=== PATIENT | male | born 1940 | race Two or more races ===

== ENCOUNTER → 2022-05-21 | Outpatient (CLI) | payer MEDICARE ==
[2022-05-21 12:30] LABS: Basophils # (auto) 0.1 10 ^3/uL (0-0.2); Eosinophils # (auto) 0.1 10 ^3/uL (0-0.8); Eosinophils % (auto) 1.2 % (0.0-7.0); Hematocrit 43.2 % (41.0-53.0); Hemoglobin 14.5 g/dL (13.5-17.5); Lymphocytes # (auto) 2.2 10 ^3/uL (0.4-5.4); Mean Corpuscular Hgb Conc. 33.6 g/dL (32.0-36.0); Mean Corpuscular Volume 92.1 fL (80.0-100.0); Monocytes # (auto) 0.7 10 ^3/uL (0-1.3); Monocytes % (auto) 11.5 % (0.0-12.0); Neutrophils # (auto) 3.2 10 ^3/uL (1.6-8.6); Neutrophils % (auto) 51.3 % (37.0-80.0); Nucleated Red Blood Cells % 0.3 %; Red Blood Cells 4.69 10^6/uL (4.5-5.90); Red Cell Distribution Width 13.5 % (11.8-14.3); White Blood Cell 6.2 10^3/uL (4.4-10.8)
[2022-05-21 13:08] LABS: Albumin 3.7 g/dL (3.4-5.0); Calcium 8.9 mg/dL (8.5-10.1); Potassium 4.3 mmol/L (3.5-5.1)
[2022-05-21 13:12] LABS: BUN/Creatinine Ratio 23.3 (10.0-20.0); Bilirubin, Total 0.6 mg/dL (0.2-1.0); Total Protein 6.9 g/dL (6.4-8.2)
== END | disposition home or self-care (01) ==
LOC: LAB 11:57
PROVIDERS: ATTEND Family Medicine
DX: Z12.11 Encounter for screening for malignant neoplasm of colon (principal); E78.5 Hyperlipidemia, unspecified; E11.65 Type 2 diabetes mellitus with hyperglycemia; E11.69 Type 2 diabetes mellitus with other specified complication; I10 Essential (primary) hypertension; I73.9 Peripheral vascular disease, unspecified; N42.9 Disorder of prostate, unspecified; E11.51 Type 2 diabetes mellitus with diabetic peripheral angiopathy without gangrene
CPT/HCPCS: 36415; 80053; 80061; 83036; 84153; 84443; 85025

== ENCOUNTER 2022-08-23 02:40 | Emergency (ER) | payer OTHER ==
[~2022-08-23] VITALS: Ht 172.7 cm; Wt 74.5 kg
[2022-08-23 03:42] LABS: Basophils # (auto) 0 10 ^3/uL (0-0.2); Basophils % (auto) 0.7 % (0.0-2.0); Eosinophils # (auto) 0.1 10 ^3/uL (0-0.8); Eosinophils % (auto) 1.5 % (0.0-7.0); Hematocrit 41.3 % (41.0-53.0); Hemoglobin 14.1 g/dL (13.5-17.5); Lymphocytes # (auto) 2.1 10 ^3/uL (0.4-5.4); Lymphocytes % (auto) 29.6 % (10.0-50.0); Mean Corpuscular Hemoglobin 31.3 pg (28.0-32.0); Mean Corpuscular Volume 91.8 fL (80.0-100.0); Monocytes # (auto) 0.8 10 ^3/uL (0-1.3); Neutrophils % (auto) 56.2 % (37.0-80.0); Nucleated Red Blood Cells % 0.1 %; White Blood Cell 7.1 10^3/uL (4.4-10.8)
[2022-08-23 04:00] LABS: Albumin 3.8 g/dL (3.4-5.0); Calcium 8.4 mg/dL (8.5-10.1); INR 1.05 (0.9-1.15); Magnesium 2.1 mg/dL (1.6-2.6); Partial Thromboplastin Time 30.6 SEC (24.5-34.5); Potassium 3.8 mmol/L (3.5-5.1)
[2022-08-23 04:03] LABS: Bilirubin, Total 0.4 mg/dL (0.2-1.0); Total Protein 7.2 g/dL (6.4-8.2)
[2022-08-23 04:06] LABS: Urine Bacteria NONE SEEN /hpf (None Seen); Urine Blood 1+ /uL (Negative); Urine WBC <1 /hpf (0 - 3)
[2022-08-23 04:12] LABS: BUN/Creatinine Ratio 29.4 (10.0-20.0)
[2022-08-23] MEDS ORDERED: ONDANSETRON ODT 4 MG TAB PO ONE (06:00)
[2022-08-23] MEDS ORDERED: HYDROcodone-ACET 5/325MG TAB PO ONE (06:00)
[2022-08-23] MEDS ORDERED: KETOROLAC TROMETH 30 MG/ML 1ML VIAL IM ONE (06:00)
[2022-08-23 06:27] VITALS: BP 172/74
== END 2022-08-23 06:39 | disposition home or self-care (01) ==
LOC: ER 02:40
DX: R10.13 Epigastric pain (principal); R79.89 Other specified abnormal findings of blood chemistry; E86.0 Dehydration; N28.1 Cyst of kidney, acquired; K80.50 Calculus of bile duct without cholangitis or cholecystitis without obstruction; K80.20 Calculus of gallbladder without cholecystitis without obstruction; E11.9 Type 2 diabetes mellitus without complications; I10 Essential (primary) hypertension; E78.5 Hyperlipidemia, unspecified
CPT/HCPCS: 36415; 71045; 74177; 80053; 81001; 83690; 83735; 83880; 84484; 85025; 85610; 85730; 93005; 96372; 99285; J1885; Q0162

== ENCOUNTER 2022-08-24 11:59 | Inpatient (IN) | payer OTHER ==
[~2022-08-24] VITALS: Ht 172.7 cm; Wt 77.7 kg
[2022-08-24] MEDS ORDERED: SODIUM CHLORIDE 0.9% 1,000 ML IV ONE (12:30)
[2022-08-24 12:48] LABS: Basophils # (auto) 0.1 10 ^3/uL (0-0.2); Basophils % (auto) 0.5 % (0.0-2.0); Eosinophils # (auto) 0 10 ^3/uL (0-0.8); Eosinophils % (auto) 0.1 % (0.0-7.0); Hematocrit 42.7 % (41.0-53.0); Hemoglobin 14.2 g/dL (13.5-17.5); Lymphocytes # (auto) 0.7 10 ^3/uL (0.4-5.4); Lymphocytes % (auto) 3.9 % (10.0-50.0); Mean Corpuscular Hemoglobin 30.4 pg (28.0-32.0); Mean Corpuscular Hgb Conc. 33.2 g/dL (32.0-36.0); Mean Corpuscular Volume 91.4 fL (80.0-100.0); Monocytes # (auto) 1.1 10 ^3/uL (0-1.3); Monocytes % (auto) 5.7 % (0.0-12.0); Neutrophils # (auto) 16.7 10 ^3/uL (1.6-8.6); Neutrophils % (auto) 89.8 % (37.0-80.0); Red Blood Cells 4.67 10^6/uL (4.5-5.90); Red Cell Distribution Width 14.2 % (11.8-14.3); White Blood Cell 18.6 10^3/uL (4.4-10.8)
[2022-08-24 13:06] LABS: Albumin 3.5 g/dL (3.4-5.0); Calcium 8.5 mg/dL (8.5-10.1)
[2022-08-24 13:10] LABS: BUN/Creatinine Ratio 24.7 (10.0-20.0); Bilirubin, Total 0.7 mg/dL (0.2-1.0); Total Protein 6.4 g/dL (6.4-8.2)
[2022-08-24] MEDS ORDERED: DOCUSATE SOD 100 MG CAP PO PRN (16:45)
[2022-08-24] MEDS: cefTRIAXone 1GM/50ML D5W 50 ML IV SCH (16:57)
[2022-08-24] MEDS: metroNIDAZOLE 500MG/100ML 100 ML IV SCH (16:57)
[2022-08-24] MEDS: HYDROcodone-ACET 5/325MG TAB PO PRN ×2 (17:04→21:35)
[2022-08-24 17:41] LABS: INR 1.35 (0.9-1.15)
[2022-08-24] MEDS: SODIUM CHLOR 0.9% PF (SALINE LOCK) 10ML VIAL/SYR IV SCH (22:34)
[2022-08-24] MEDS: ONDANSETRON HCL 4 MG/2 ML VIAL IV PRN (22:48)
[2022-08-24] MEDS: HYDROmorphone HCL 2 MG/ML VL/or syr IV PRN (22:48)
[2022-08-25] MEDS ORDERED: SODIUM CHLORIDE 0.9% 1,000 ML IV SCH (00:15)
[2022-08-25] MEDS: metroNIDAZOLE 500MG/100ML 100 ML IV SCH ×3 (00:33→16:58)
[2022-08-25] MEDS: HYDROcodone-ACET 5/325MG TAB PO PRN (01:39)
[2022-08-25] MEDS: HYDROmorphone HCL 2 MG/ML VL/or syr IV PRN ×4 (02:54→20:57)
[2022-08-25] MEDS: ONDANSETRON HCL 4 MG/2 ML VIAL IV PRN ×2 (02:54→07:08)
[2022-08-25] MEDS: SODIUM CHLOR 0.9% PF (SALINE LOCK) 10ML VIAL/SYR IV SCH ×3 (06:13→22:00)
[2022-08-25] MEDS: cefTRIAXone 1GM/50ML D5W 50 ML IV SCH (10:18)
[2022-08-25 12:07] VITALS: BP 126/71
[2022-08-25 13:00] VITALS: BP 126/71
[2022-08-25] MEDS ORDERED: ROSU1TAB12 PO (14:13)
[2022-08-25] MEDS ORDERED: VALS1TAB58 PO (14:13)
[2022-08-25] MEDS ORDERED: METF-372 PO (14:13)
[2022-08-25] MEDS ORDERED: CHOL20007 PO (14:14)
[2022-08-25] MEDS ORDERED: PHYTONADIONE (VIT K)10 MG/ML 1ML VIAL SUBCUT ONE (15:15)
[2022-08-25] MEDS ORDERED: FUROSEMIDE 20 MG/2 ML VIAL IV ONE (15:30)
[2022-08-25 17:00] VITALS: BP 121/58
[2022-08-25 20:00] VITALS: BP 105/45
[2022-08-25 22:50] VITALS: BP 105/45
[2022-08-26] MEDS: metroNIDAZOLE 500MG/100ML 100 ML IV SCH ×3 (00:12→17:49)
[2022-08-26 05:10] VITALS: BP 128/66
[2022-08-26] MEDS: HYDROmorphone HCL 2 MG/ML VL/or syr IV PRN ×6 (05:10→19:05)
[2022-08-26] MEDS: SODIUM CHLOR 0.9% PF (SALINE LOCK) 10ML VIAL/SYR IV SCH ×3 (05:53→22:00)
[2022-08-26 06:15] LABS: INR 1.22 (0.9-1.15); Partial Thromboplastin Time 40.9 SEC (24.5-34.5)
[2022-08-26 06:16] LABS: Potassium 3.8 mmol/L (3.5-5.1)
[2022-08-26 06:22] LABS: Basophils # (auto) 0 10 ^3/uL (0-0.2); Basophils % (auto) 0.1 % (0.0-2.0); Eosinophils # (auto) 0 10 ^3/uL (0-0.8); Eosinophils % (auto) 0.1 % (0.0-7.0); Hematocrit 39.1 % (41.0-53.0); Hemoglobin 13.1 g/dL (13.5-17.5); Lymphocytes # (auto) 0.5 10 ^3/uL (0.4-5.4); Lymphocytes % (auto) 3.6 % (10.0-50.0); Mean Corpuscular Hemoglobin 30.7 pg (28.0-32.0); Mean Corpuscular Hgb Conc. 33.4 g/dL (32.0-36.0); Mean Corpuscular Volume 91.7 fL (80.0-100.0); Monocytes # (auto) 1.1 10 ^3/uL (0-1.3); Monocytes % (auto) 8.7 % (0.0-12.0); Neutrophils # (auto) 11.4 10 ^3/uL (1.6-8.6); Neutrophils % (auto) 87.5 % (37.0-80.0); Red Blood Cells 4.26 10^6/uL (4.5-5.90); Red Cell Distribution Width 14.5 % (11.8-14.3)
[2022-08-26 06:27] LABS: Albumin 2.7 g/dL (3.4-5.0); BUN/Creatinine Ratio 51.9 (10.0-20.0); Bilirubin, Total 0.4 mg/dL (0.2-1.0); Calcium 8.1 mg/dL (8.5-10.1); Total Protein 6.4 g/dL (6.4-8.2)
[2022-08-26] MEDS: BUPIVACAINE 0.25% INJ 50ML VIAL ONE ×2 (06:50→12:16)
[2022-08-26] MEDS ORDERED: LIDOCAINE 1% HCL (LOCAL ANESTH.) INJ 20ML MDV ONE (06:50)
[2022-08-26] MEDS ORDERED: SODIUM CHLORIDE LOCK 10 ML ONE (07:05)
[2022-08-26] MEDS ORDERED: MEPERIDINE HCL (50 MG/ML) 1 ML VIAL ONE (07:05)
[2022-08-26] MEDS ORDERED: MIDAZOLAM HCL 2MG/2ML 2ml VIAL (1mg/ml) ONE (07:05)
[2022-08-26] MEDS ORDERED: ETOMIDATE (2MG/ML) 20ML VIAL IV ONE (07:05)
[2022-08-26] MEDS ORDERED: GLYCOPYRROLATE 0.2 MG/ML 1ML VIAL ONE (07:05)
[2022-08-26] MEDS ORDERED: NEOSTIGMINE 1 MG/ML INJ (10mg/10ML VIAL) ONE (07:05)
[2022-08-26] MEDS ORDERED: ROCURONIUM 10MG/ML 10ML VIAL IV ONE (07:05)
[2022-08-26] MEDS ORDERED: ONDANSETRON HCL 4 MG/2 ML VIAL ONE (07:05)
[2022-08-26] MEDS ORDERED: fentaNYL CITRATE 100 MCG/2 ML VL ONE (07:05)
[2022-08-26] MEDS ORDERED: ceFAZolin 1GM/50ML 100 ML IV ONE (07:10)
[2022-08-26] MEDS ORDERED: MORPHINE SULFATE INJ 2 MG/ml SYRG IV PRN (07:15)
[2022-08-26] MEDS ORDERED: HYDROmorphone HCL 2 MG/ML VL/or syr IV PRN (07:15)
[2022-08-26] MEDS ORDERED: ACCU-CHEK COMFORT CURVE STRIP VI ONE (07:15)
[2022-08-26] MEDS ORDERED: METOCLOPRAMIDE HCL 5MG/ml INJ 2ml VIAL IV PRN (07:15)
[2022-08-26] MEDS: SOD CHL 0.45% WITH 20MEQ KCL 1,000 ML IV SCH ×2 (08:45→18:55)
[2022-08-26] MEDS: FUROSEMIDE 20 MG/2 ML VIAL IV SCH (10:00)
[2022-08-26] MEDS: cefTRIAXone 1GM/50ML D5W 50 ML IV SCH (10:00)
[2022-08-26 13:00] VITALS: BP 132/65
[2022-08-26 17:00] VITALS: BP 139/64
[2022-08-26] MEDS: ACETAMINOPHEN 325 MG TAB PO PRN (18:10)
[2022-08-26 20:00] VITALS: BP 105/45
[2022-08-26 22:00] VITALS: BP 103/61
[2022-08-27] MEDS: metroNIDAZOLE 500MG/100ML 100 ML IV SCH ×3 (00:54→17:01)
[2022-08-27] MEDS: HYDROmorphone HCL 2 MG/ML VL/or syr IV PRN ×3 (01:21→10:42)
[2022-08-27] MEDS: SOD CHL 0.45% WITH 20MEQ KCL 1,000 ML IV SCH (04:45)
[2022-08-27 05:00] VITALS: BP 107/51
[2022-08-27 05:44] LABS: Urine Bacteria NONE SEEN /hpf (None Seen); Urine Blood 1+ /uL (Negative); Urine Mucus FEW (None Seen); Urine Specific Gravity 1.019 (1.001-1.035); Urine WBC 2 /hpf (0 - 3)
[2022-08-27] MEDS: SODIUM CHLOR 0.9% PF (SALINE LOCK) 10ML VIAL/SYR IV SCH ×3 (06:00→22:00)
[2022-08-27 06:43] LABS: Albumin 2.3 g/dL (3.4-5.0); Calcium 8.4 mg/dL (8.5-10.1)
[2022-08-27 06:49] LABS: BUN/Creatinine Ratio 54.4 (10.0-20.0); Bilirubin, Total 0.4 mg/dL (0.2-1.0); Total Protein 5.9 g/dL (6.4-8.2)
[2022-08-27 06:51] LABS: Basophils # (auto) 0 10 ^3/uL (0-0.2); Basophils % (auto) 0.2 % (0.0-2.0); Eosinophils # (auto) 0.1 10 ^3/uL (0-0.8); Eosinophils % (auto) 0.7 % (0.0-7.0); Hematocrit 37.4 % (41.0-53.0); Hemoglobin 12.4 g/dL (13.5-17.5); Lymphocytes # (auto) 0.6 10 ^3/uL (0.4-5.4); Mean Corpuscular Hemoglobin 30.9 pg (28.0-32.0); Mean Corpuscular Hgb Conc. 33.2 g/dL (32.0-36.0); Mean Corpuscular Volume 93.1 fL (80.0-100.0); Monocytes % (auto) 11.8 % (0.0-12.0); Neutrophils # (auto) 7.1 10 ^3/uL (1.6-8.6); Neutrophils % (auto) 80.3 % (37.0-80.0); Nucleated Red Blood Cells % 0.1 %; Red Blood Cells 4.01 10^6/uL (4.5-5.90); Red Cell Distribution Width 14.9 % (11.8-14.3); White Blood Cell 8.8 10^3/uL (4.4-10.8)
[2022-08-27] MEDS: ONDANSETRON HCL 4 MG/2 ML VIAL IV PRN (07:38)
[2022-08-27 08:52] VITALS: BP 132/66
[2022-08-27] MEDS: cefTRIAXone 1GM/50ML D5W 50 ML IV SCH (09:47)
[2022-08-27] MEDS: FUROSEMIDE 20 MG/2 ML VIAL IV SCH ×2 (09:48→17:54)
[2022-08-27] MEDS ORDERED: FUROSEMIDE 20 MG/2 ML VIAL IV ONE (12:00)
[2022-08-27] MEDS ORDERED: AZITHROMYCIN 500MG/ 250ML 250 ML IV ONE (12:00)
[2022-08-27] MEDS: HYDROcodone-ACET 5/325MG TAB PO PRN (12:43)
[2022-08-27 12:54] VITALS: BP 103/46
[2022-08-27 14:23] VITALS: BP 103/46
[2022-08-27] MEDS ORDERED: IOHEXOL 350 MG/ML 100ML IJ ONE (15:08)
[2022-08-27 17:15] VITALS: BP 134/82
[2022-08-27] MEDS: ACETAMINOPHEN 325 MG TAB PO PRN ×2 (17:57→23:49)
[2022-08-27 22:00] VITALS: BP 114/58
[2022-08-28] MEDS: metroNIDAZOLE 500MG/100ML 100 ML IV SCH ×4 (00:08→22:52)
[2022-08-28] MEDS: HYDROcodone-ACET 5/325MG TAB PO PRN (02:46)
[2022-08-28 05:00] VITALS: BP 148/72
[2022-08-28 05:56] LABS: Basophils # (auto) 0 10 ^3/uL (0-0.2); Basophils % (auto) 0.3 % (0.0-2.0); Eosinophils # (auto) 0.1 10 ^3/uL (0-0.8); Eosinophils % (auto) 1.2 % (0.0-7.0); Hematocrit 34.6 % (41.0-53.0); Lymphocytes # (auto) 0.7 10 ^3/uL (0.4-5.4); Lymphocytes % (auto) 7.9 % (10.0-50.0); Mean Corpuscular Hemoglobin 31.4 pg (28.0-32.0); Mean Corpuscular Hgb Conc. 34.6 g/dL (32.0-36.0); Mean Corpuscular Volume 90.7 fL (80.0-100.0); Monocytes # (auto) 1.3 10 ^3/uL (0-1.3); Monocytes % (auto) 14.4 % (0.0-12.0); Neutrophils # (auto) 6.7 10 ^3/uL (1.6-8.6); Neutrophils % (auto) 76.2 % (37.0-80.0); Red Blood Cells 3.81 10^6/uL (4.5-5.90); Red Cell Distribution Width 14.6 % (11.8-14.3); White Blood Cell 8.8 10^3/uL (4.4-10.8)
[2022-08-28 05:57] LABS: Albumin 2.1 g/dL (3.4-5.0); Calcium 7.9 mg/dL (8.5-10.1); Magnesium 2.5 mg/dL (1.6-2.6); Potassium 3.5 mmol/L (3.5-5.1)
[2022-08-28 06:00] LABS: BUN/Creatinine Ratio 53.3 (10.0-20.0); Bilirubin, Total 0.4 mg/dL (0.2-1.0); Total Protein 5.6 g/dL (6.4-8.2)
[2022-08-28] MEDS: SODIUM CHLOR 0.9% PF (SALINE LOCK) 10ML VIAL/SYR IV SCH ×3 (06:27→22:00)
[2022-08-28] MEDS: FUROSEMIDE 20 MG/2 ML VIAL IV SCH (06:27)
[2022-08-28 08:46] VITALS: BP 130/58
[2022-08-28] MEDS: cefTRIAXone 1GM/50ML D5W 50 ML IV SCH (08:55)
[2022-08-28] MEDS ORDERED: traMADol HCL 50 MG TAB PO ONE (10:00)
[2022-08-28] MEDS: AZITHROMYCIN 500MG/ 250ML 250 ML IV SCH (10:18)
[2022-08-28 12:56] VITALS: BP 134/72
[2022-08-28 15:20] VITALS: BP 134/72
[2022-08-28] MEDS ORDERED: METOCLOPRAMIDE HCL 5MG/ml INJ 2ml VIAL IV ONE (15:30)
[2022-08-28] MEDS: ACETAMINOPHEN 325 MG TAB PO PRN (15:52)
[2022-08-28 17:00] VITALS: BP 132/80
[2022-08-28] MEDS: traMADol HCL 50 MG TAB PO PRN (18:17)
[2022-08-28 22:00] VITALS: BP 161/85
[2022-08-29] MEDS: ACETAMINOPHEN 325 MG TAB PO PRN ×4 (01:07→20:09)
[2022-08-29] MEDS: traMADol HCL 50 MG TAB PO PRN ×2 (04:48→16:41)
[2022-08-29 05:00] VITALS: BP 151/65
[2022-08-29] MEDS: SODIUM CHLOR 0.9% PF (SALINE LOCK) 10ML VIAL/SYR IV SCH ×3 (06:00→21:39)
[2022-08-29 06:19] LABS: Hematocrit 38.8 % (41.0-53.0); Mean Corpuscular Hemoglobin 30.6 pg (28.0-32.0); Mean Corpuscular Hgb Conc. 33.6 g/dL (32.0-36.0); Red Blood Cells 4.26 10^6/uL (4.5-5.90); White Blood Cell 7.4 10^3/uL (4.4-10.8)
[2022-08-29 06:25] LABS: Basophils % (manual) 0 (0.0-2.0); Blast Cells 0; Promyelocytes % 0; Reactive Lymphocytes 0
[2022-08-29 06:29] LABS: Potassium 3.2 mmol/L (3.5-5.1)
[2022-08-29 06:42] LABS: BUN/Creatinine Ratio 38.9 (10.0-20.0); Calcium 8.3 mg/dL (8.5-10.1)
[2022-08-29 07:25] LABS: Band Neutrophils % (manual) 5; Eosinophils % (manual) 1 (0-7); Lymphocytes % (manual) 12 (10.0-50.0); Metamyelocytes % 2; Monocytes % (manual) 13 (0-12); Myelocytes % 3
[2022-08-29] MEDS: cefTRIAXone 1GM/50ML D5W 50 ML IV SCH (09:02)
[2022-08-29] MEDS: metroNIDAZOLE 500MG/100ML 100 ML IV SCH ×3 (09:02→22:54)
[2022-08-29] MEDS: FUROSEMIDE 20 MG/2 ML VIAL IV SCH (09:46)
[2022-08-29] MEDS: AZITHROMYCIN 500MG/ 250ML 250 ML IV SCH (09:47)
[2022-08-29 10:21] VITALS: BP 162/81
[2022-08-29] MEDS ORDERED: POTASSIUM EFFERVESENT TAB 25 MEQ PO ONE (11:45)
[2022-08-29] MEDS ORDERED: METOCLOPRAMIDE HCL 5MG/ml INJ 2ml VIAL IV ONE (13:00)
[2022-08-29 20:00] VITALS: BP 160/75
[2022-08-29 22:00] VITALS: BP 160/75
[2022-08-29] MEDS: hydrALAZINE HCL 20 MG/ML VL IV PRN (22:40)
[2022-08-30] MEDS ORDERED: MORPHINE SULFATE INJ 2 MG/ml SYRG IV ONE
[2022-08-30] MEDS ORDERED: MORPHINE SULFATE INJ 2 MG/ml SYRG ONE (00:06)
[2022-08-30] MEDS ORDERED: METOPROLOL TARTRATE 1MG/1ML-5ML VIAL IV ONE ×2 (00:06)
[2022-08-30] MEDS: traMADol HCL 50 MG TAB PO PRN ×2 (04:21→12:29)
[2022-08-30 05:00] VITALS: BP 114/76
[2022-08-30] MEDS: SODIUM CHLOR 0.9% PF (SALINE LOCK) 10ML VIAL/SYR IV SCH (05:53)
[2022-08-30 06:17] LABS: Hematocrit 39.5 % (41.0-53.0); Hemoglobin 13.4 g/dL (13.5-17.5); Mean Corpuscular Hemoglobin 30.5 pg (28.0-32.0); Mean Corpuscular Hgb Conc. 33.8 g/dL (32.0-36.0); Mean Corpuscular Volume 90.3 fL (80.0-100.0); Red Blood Cells 4.37 10^6/uL (4.5-5.90); Red Cell Distribution Width 14.6 % (11.8-14.3); White Blood Cell 7.8 10^3/uL (4.4-10.8)
[2022-08-30 06:30] LABS: Potassium 3.2 mmol/L (3.5-5.1)
[2022-08-30 06:39] LABS: BUN/Creatinine Ratio 34.2 (10.0-20.0); Calcium 7.9 mg/dL (8.5-10.1)
[2022-08-30 06:40] LABS: Basophils % (manual) 0 (0.0-2.0); Blast Cells 0; Promyelocytes % 0; Reactive Lymphocytes 0
[2022-08-30] MEDS ORDERED: VALSARTAN 80 MG TAB PO SCH (07:00)
[2022-08-30 07:37] LABS: Band Neutrophils % (manual) 4; Eosinophils % (manual) 1 (0-7); Lymphocytes % (manual) 16 (10.0-50.0); Metamyelocytes % 3; Monocytes % (manual) 8 (0-12); Myelocytes % 3
[2022-08-30] MEDS: metroNIDAZOLE 500MG/100ML 100 ML IV SCH (08:47)
[2022-08-30] MEDS: cefTRIAXone 1GM/50ML D5W 50 ML IV SCH (08:47)
[2022-08-30 09:00] VITALS: BP 156/79
[2022-08-30] MEDS: hydrALAZINE HCL 20 MG/ML VL IV PRN (09:42)
[2022-08-30] MEDS: FUROSEMIDE 20 MG/2 ML VIAL IV SCH (09:42)
[2022-08-30] MEDS: AZITHROMYCIN 500MG/ 250ML 250 ML IV SCH (09:43)
[2022-08-30] MEDS: ACETAMINOPHEN 325 MG TAB PO PRN (09:58)
[2022-08-30 10:31] LABS: Basophils # (auto) 0 10 ^3/uL (0-0.2); Basophils % (auto) 0.5 % (0.0-2.0); Eosinophils # (auto) 0.1 10 ^3/uL (0-0.8); Eosinophils % (auto) 1.3 % (0.0-7.0); Hematocrit 40.3 % (41.0-53.0); Hemoglobin 13.6 g/dL (13.5-17.5); Lymphocytes # (auto) 1.1 10 ^3/uL (0.4-5.4); Mean Corpuscular Hemoglobin 30.4 pg (28.0-32.0); Mean Corpuscular Hgb Conc. 33.8 g/dL (32.0-36.0); Mean Corpuscular Volume 90.1 fL (80.0-100.0); Monocytes # (auto) 1.4 10 ^3/uL (0-1.3); Monocytes % (auto) 17.9 % (0.0-12.0); Neutrophils # (auto) 5.2 10 ^3/uL (1.6-8.6); Neutrophils % (auto) 66.3 % (37.0-80.0); Red Blood Cells 4.47 10^6/uL (4.5-5.90); Red Cell Distribution Width 14.7 % (11.8-14.3); White Blood Cell 7.9 10^3/uL (4.4-10.8)
[2022-08-30 10:47] LABS: Potassium 3.6 mmol/L (3.5-5.1)
[2022-08-30 10:55] LABS: Albumin 2.5 g/dL (3.4-5.0); BUN/Creatinine Ratio 27.1 (10.0-20.0); Bilirubin, Total 0.5 mg/dL (0.2-1.0); Calcium 7.8 mg/dL (8.5-10.1); Magnesium 2.2 mg/dL (1.6-2.6); Total Protein 5.6 g/dL (6.4-8.2)
[2022-08-30 13:00] VITALS: BP_SYST 109; BP_SYST 130; BP_DIAS 67; BP_DIAS 81
[2022-08-30 13:33] VITALS: BP 109/67
== END 2022-08-30 14:19 | disposition home or self-care (01) | DRG 853 ==
LOC: ER 11:59 → OVERFLOW 16:47 → EAST 08-25 11:41 → TELE-EAST 08-27 00:37 → EAST 08-30 06:04
PROVIDERS: ADMIT Internal Medicine; ATTEND Internal Medicine
PROC: 0FT44ZZ Resection of Gallbladder, Percutaneous Endoscopic Approach (ICD-10-PCS; principal; 2022-08-26 07:55)
DX: A41.9 Sepsis, unspecified organism (principal); E43 Unspecified severe protein-calorie malnutrition; I50.31 Acute diastolic (congestive) heart failure; J96.01 Acute respiratory failure with hypoxia; J18.9 Pneumonia, unspecified organism; K80.00 Calculus of gallbladder with acute cholecystitis without obstruction; J98.11 Atelectasis; E78.5 Hyperlipidemia, unspecified; I95.9 Hypotension, unspecified; D72.829 Elevated white blood cell count, unspecified; E66.9 Obesity, unspecified; I11.0 Hypertensive heart disease with heart failure; E11.9 Type 2 diabetes mellitus without complications; R79.89 Other specified abnormal findings of blood chemistry; Z87.891 Personal history of nicotine dependence; Z68.25 Body mass index [BMI] 25.0-25.9, adult
CPT/HCPCS: 36415; 70450; 71045; 71275; 74176; 74177; 76705; 80048; 80053; 81001; 82962; 83036; 83605; 83690; 83735; 83880; 84484; 85007; 85025; 85027; 85379; 85610; 85730; 87040; 87070; 87075; 87205; 93005; 93306; 93970; 94640; 96361; 96365; 96372; 96375; 97110; 97116; 97163; 97530; G0378; J0690; J0696; J1885; J2001; J2250; J2405; J3430; J3490; Q0162

== ENCOUNTER → 2023-01-03 | Outpatient (CLI) | payer OTHER ==
[~2023-01-03] MED LIST: CHOL20007 PO; METF-372 PO; ROSU1TAB12 PO; VALS1TAB58 PO
[2023-01-03 08:40] LABS: Urine WBC None Seen /hpf (0 - 3)
[2023-01-03 08:46] LABS: Basophils # (auto) 0.1 10 ^3/uL (0-0.2); Eosinophils # (auto) 0.1 10 ^3/uL (0-0.8); Eosinophils % (auto) 1.7 % (0.0-7.0); Hematocrit 46.5 % (41.0-53.0); Hemoglobin 15.4 g/dL (13.5-17.5); Lymphocytes # (auto) 2.2 10 ^3/uL (0.4-5.4); Lymphocytes % (auto) 36.5 % (10.0-50.0); Mean Corpuscular Hemoglobin 30.4 pg (28.0-32.0); Mean Corpuscular Hgb Conc. 33.1 g/dL (32.0-36.0); Mean Corpuscular Volume 91.7 fL (80.0-100.0); Monocytes # (auto) 0.6 10 ^3/uL (0-1.3); Monocytes % (auto) 10.5 % (0.0-12.0); Neutrophils % (auto) 50.3 % (37.0-80.0); Red Blood Cells 5.07 10^6/uL (4.5-5.90); Red Cell Distribution Width 14.5 % (11.8-14.3)
[2023-01-03 08:50] LABS: Urine Bacteria NONE SEEN /hpf (None Seen); Urine Blood 2+ /uL (Negative); Urine Clarity Clear (Clear); Urine Color Colorless (Yellow); Urine Protein, UAD Negative (Negative); Urine Specific Gravity 1.017 (1.001-1.035); Urine Urobilinogen Normal (Negative)
[2023-01-03 09:32] LABS: Alanine Aminotransferase 11 U/L (7-40); Albumin 4.6 g/dL (3.2-4.8); Alkaline Phosphatase 104 U/L (46-116); Anion Gap 6 (5-15); Aspartate Aminotransferase 19 U/L (13-40); BUN/Creatinine Ratio 17.1 (10.0-20.0); Bilirubin, Total 0.6 mg/dL (0.2-1.0); Blood Urea Nitrogen 12 mg/dL (9-23); Calcium 9.5 mg/dL (8.5-10.1); Carbon Dioxide 28 mmol/L (20-30); Chloride 107 mmol/L (98-107); Cholesterol 143 mg/dL (< 200); Glucose 109 mg/dL (74-106); HDL Cholesterol 47 mg/dL (40-59); LDL Cholesterol 83 mg/dL (< 100); Potassium 4.4 mmol/L (3.5-5.1); Sodium 141 mmol/L (136-145); Total Protein 7.4 g/dL (5.7-8.2); Triglycerides 143 mg/dL (< 150)
== END | disposition home or self-care (01) ==
LOC: LAB 08:21
PROVIDERS: ATTEND Student in an Organized Health Care Education/Training Program
DX: E11.65 Type 2 diabetes mellitus with hyperglycemia (principal); E78.5 Hyperlipidemia, unspecified
CPT/HCPCS: 36415; 80053; 80061; 81001; 83036; 84153; 84443; 85025

== ENCOUNTER → 2023-03-03 | Outpatient (CLI) | payer OTHER | END | disposition home or self-care (01) | LOC: LAB 10:10 | PROVIDERS: ATTEND Family Medicine | DX: Z12.11 Encounter for screening for malignant neoplasm of colon (principal) | CPT/HCPCS: 82270 ==

== ENCOUNTER → 2023-04-12 | Outpatient (CLI) | payer OTHER ==
[2023-04-12 11:55] LABS: Albumin 4.5 g/dL (3.2-4.8); Alkaline Phosphatase 67 U/L (46-116); Anion Gap 5 (5-15); Aspartate Aminotransferase 17 U/L (13-40); BUN/Creatinine Ratio 19.7 (10.0-20.0); Blood Urea Nitrogen 13 mg/dL (9-23); Calcium 9.6 mg/dL (8.5-10.1); Carbon Dioxide 27 mmol/L (20-30); Chloride 109 mmol/L (98-107); Glucose 106 mg/dL (74-106); LDL Cholesterol 72 mg/dL (< 100); Potassium 4.6 mmol/L (3.5-5.1); Sodium 141 mmol/L (136-145); Triglycerides 112 mg/dL (< 150)
[2023-04-12 11:56] LABS: Bilirubin, Total 0.6 mg/dL (0.2-1.0); Cholesterol 132 mg/dL (< 200); HDL Cholesterol 47 mg/dL (40-59); Total Protein 7.3 g/dL (5.7-8.2)
[2023-04-12 12:01] LABS: Alanine Aminotransferase < 9 U/L (7-40)
== END | disposition home or self-care (01) ==
LOC: LAB 11:04
PROVIDERS: ATTEND Family Medicine
DX: I12.9 Hypertensive chronic kidney disease with stage 1 through stage 4 chronic kidney disease, or unspecified chronic kidney disease (principal); E11.22 Type 2 diabetes mellitus with diabetic chronic kidney disease; N18.9 Chronic kidney disease, unspecified; E78.2 Mixed hyperlipidemia; E11.65 Type 2 diabetes mellitus with hyperglycemia; E78.5 Hyperlipidemia, unspecified
CPT/HCPCS: 36415; 80053; 80061; 83036

== ENCOUNTER → 2023-09-29 | Outpatient (CLI) | payer OTHER ==
[~2023-09-29] MED LIST changes: -ROSU1TAB12 PO; +ROSU5TAB24 PO
[2023-09-29 11:56] LABS: Alkaline Phosphatase 72 U/L (46-116); Calcium 9.5 mg/dL (8.7-10.4); Chloride 108 mmol/L (98-107)
[2023-09-29 11:57] LABS: Albumin 4.2 g/dL (3.2-4.8); Anion Gap 3 (5-15); Aspartate Aminotransferase 18 U/L (13-40); BUN/Creatinine Ratio 20.5 (10.0-20.0); Blood Urea Nitrogen 15 mg/dL (9-23); Carbon Dioxide 29 mmol/L (20-30); Cholesterol 142 mg/dL (< 200); Glucose 115 mg/dL (74-106); HDL Cholesterol 45 mg/dL (40-59); LDL Cholesterol 81 mg/dL (< 100); Potassium 4.5 mmol/L (3.5-5.1); Sodium 140 mmol/L (136-145); Triglycerides 113 mg/dL (< 150)
[2023-09-29 11:59] LABS: Bilirubin, Total 0.9 mg/dL (0.2-1.0); Total Protein 6.8 g/dL (5.7-8.2)
[2023-09-29 12:33] LABS: Alanine Aminotransferase < 9 U/L (7-40)
== END | disposition home or self-care (01) ==
LOC: LAB 11:17
PROVIDERS: ATTEND Family Medicine
DX: I12.9 Hypertensive chronic kidney disease with stage 1 through stage 4 chronic kidney disease, or unspecified chronic kidney disease (principal); E11.22 Type 2 diabetes mellitus with diabetic chronic kidney disease; N18.9 Chronic kidney disease, unspecified; E11.65 Type 2 diabetes mellitus with hyperglycemia; E78.2 Mixed hyperlipidemia
CPT/HCPCS: 36415; 80053; 80061; 83036

== ENCOUNTER → 2023-12-27 | Outpatient (CLI) | payer OTHER ==
[2023-12-27 11:33] LABS: Albumin 4.5 g/dL (3.2-4.8); Alkaline Phosphatase 73 U/L (46-116); Anion Gap 5 (5-15); Aspartate Aminotransferase 12 U/L (13-40); Bilirubin, Total 0.8 mg/dL (0.2-1.0); Blood Urea Nitrogen 14 mg/dL (9-23); Calcium 9.9 mg/dL (8.7-10.4); Carbon Dioxide 28 mmol/L (20-31); Chloride 106 mmol/L (98-107); Cholesterol 168 mg/dL (< 200); Glucose 107 mg/dL (74-106); HDL Cholesterol 49 mg/dL (40-59); LDL Cholesterol 106 mg/dL (< 100); Potassium 4.3 mmol/L (3.5-5.1); Sodium 139 mmol/L (136-145); Triglycerides 100 mg/dL (< 150)
[2023-12-27 11:34] LABS: Total Protein 7.5 g/dL (5.7-8.2)
[2023-12-27 11:39] LABS: Alanine Aminotransferase < 9 U/L (7-40)
== END | disposition home or self-care (01) ==
LOC: LAB 10:03
PROVIDERS: ATTEND Family Medicine
DX: I12.9 Hypertensive chronic kidney disease with stage 1 through stage 4 chronic kidney disease, or unspecified chronic kidney disease (principal); E11.22 Type 2 diabetes mellitus with diabetic chronic kidney disease; E11.65 Type 2 diabetes mellitus with hyperglycemia; N18.9 Chronic kidney disease, unspecified
CPT/HCPCS: 36415; 80053; 80061; 83036

== ENCOUNTER 2024-03-02 10:41 | Emergency (ER) | payer OTHER ==
[~2024-03-02] VITALS: Ht 172.7 cm; Wt 72.0 kg
[2024-03-02 12:16] VITALS: BP 133/68; PULSE 63; RESP 20; TEMP 98.1; O2SAT 98
--- NOTE | 2024-03-02 12:19 | ED.PDOC ---
Back pain HPI HPI Comments A 83 YEAR OLD MALE PRESENTS TO THE ED WITH COMPLAINT OF LOWER BACK PAIN THAT RADIATES TO RIGHT BUTTOCK. PATIENT STATES HE HAS BEEN EXPERIENCING LOWER BACK PAIN THAT RADIATES TO HIS RIGHT BUTTOCK FOR THE PAST 2 DAYS. PATIENT DENIES SADDLE ANESTHESIA, URINARY INCONTINENCE, BOWEL INCONTINENCE, FEVER, CHILLS, SHORTNESS OF BREATH, CHEST PAIN, ABDOMINAL PAIN, NAUSEA, VOMITING, HEADACHE, OR OTHER COMPLAINTS. NO OTHER SYMPTOMS OR MODIFYING FACTORS AT THIS TIME. PATIENT IS ALERT, ORIENTED X 4, AND HAS STEADY GAIT. Chief Complaint: Back Pain Time Seen by MD: 11:07 Primary Care Provider: PT DOES NOT KNOW Reviewed Notes: Nurses Notes, Medications, Allergies Allergies: Coded Allergies: NO KNOWN ALLERGIES (Unverified , 03/20/14) Home Meds Reported Medications Cholecalciferol (VITAMIN D3) 2,000 Unit Tab, 1 TAB PO DAILY 08/25/22 Rosuvastatin Calcium (Rosuvastatin Calcium) 5 Mg Tab, 1 TAB PO DAILY 08/25/22 Metformin Hydrochloride (Metformin Hcl) 1,000 Mg Tab, 1 TAB PO BID 08/25/22 Valsartan (Valsartan) 160 Mg Tab, 1 TAB PO QAM for HTN 08/25/22 Information Source: Patient Mode of Arrival: Ambulatory Timing: Days Duration: Since onset, Days Location of Back pain: (B) Lumbar Radiates to: Anterior: (R) Buttocks Radiates to: Posterior: (R) Buttocks Radiates to: Medial: (R) Buttocks Radiates to: Lateral: (R) Buttocks Severity: Moderate Prehospital treatment: None Quality: Aching, Cramping Onset: Spontaneous History of: None Modifying Factors: Movement Associated signs and symptoms: None Past Medical History PAST MEDICAL HISTORY: DM, High Lipids, HTN Surgical History: Denies all surgeries Family History Family History: No family hx of HTN Social History Smoker: Non-Smoker Alcohol: Denies ETOH Use Drugs: Denies Drug Use Lives In: Home Constitutional: denies: chills, diaphoresis, fatigue, fever, malaise, sweats, weakness, others EENTM: denies: blurred vision, double vision, ear bleeding, ear discharge, ear drainage, ear pain, ear ringing, eye pain, eye redness, hearing loss, mouth pain, mouth swelling, nasal discharge, nose bleeding, nose congestion, nose pain, photophobia, tearing, throat pain, throat swelling, voice changes, others Respiratory: denies: cough, hemoptysis, orthopnea, SOB at rest, shortness of breath, SOB with excertion, stridor, wheezing, others Cardiovascular: denies: chest pain, dizzy spells, diaphoresis, Dyspnea on exertion, edema, irregular heart beat, left arm pain, lightheadedness, palpitations, PND, syncope, others Gastrointestinal: denies: abdomen distended, abdominal pain, blood streaked bowels, constipated, diarrhea, dysphagia, difficulty swallowing, hematemesis, melena, nausea, poor appetite, poor fluid intake, rectal bleeding, rectal pain, vomiting, others Genitourinary: denies: burning, dysuria, flank pain, frequency, hematuria, incontinence, penile discharge, penile sore, pain, testicle pain, testicle swelling, urgency, others Neurological: denies: dizziness, fainting, headache, left sided numbness, left sided weakness, numbness, paresthesia, pre-existing deficit, right sided numbness, right sided weakness, seizure, speech problems, tingling, tremors, weakness, others Musculoskeletal: reports: back pain (LOWER BACK PAIN THAT RADIATES TO RIGHT BUTTOCK), muscle pain; denies: gout, joint pain, joint swelling, muscle stiffness, neck pain, others Integumetry: denies: bruises, change in color, change in hair/nails, dryness, laceration, lesions, lumps, rash, wounds, others Allergic/Immunocompromised: denies: Difficulty Healing, Frequent Infections, Hives, Itching, others Hematologic/Lymphatic: denies: anemia, blood clots, easy bleeding, easy bruising, swollen glands, others Endocrine: denies: excessive hunger, excessive sweating, excessive thirst, excessive urination, flushing, intolerance to cold, intolerance to heat, unexplained weight gain, unexplained weight loss, others Psychiatric: denies: anxiety, bipolar disorder, depression, hopeless, panic disorder, schizophrenia, sleepless, suicidal, others All Other Systems: Reviewed and Negative Physical Exam General Appearance: No Apparent Distress, Normal HEENT: Normal ENT Inspection, PERRL/EOMI, Pharynx Normal, TMs Normal Neck: Full Range of Motion, Non-Tender, Normal, Normal Inspection Respiratory: Chest Non-Tender, Lungs Clear, No Accessory Muscle Use, No Respiratory Distress, Normal Breath Sounds Cardiovascular: No Edema, No JVD, No Murmur, No Gallop, Normal Peripheral Pulses, Regular Rate/Rhythm Breast Exam: Deferred Gastrointestinal: No Organomegaly, Non Tender, No Pulsatile Mass, Normal Bowel Sounds, Soft Genitalia: Deferred Pelvic: Deferred Rectal: Deferred Extremities: No calf tenderness, Normal capillary refill, Normal inspection, Normal range of motion, Non-tender, No pedal edema Musculoskeletal : Location: Right Extremity Location: Back Apperance: Tenderness (AND MUSCLE SPASM ON RIGHT LOWER BACK TO RIGHT BUTTOCK, NO BONY TENDERNESS AND SWELLING. NO CVA TENDERNESS. 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 Was a procedure done?: No Back Pain Differential Dx Differential Diagnosis: Musculoskeletal Pain, Other (DDD OF LOW BACK, LUMBAR RADICULOPATHY ) Other Differential Diagnosis DDD, LUMBAR RADICULOPATHY X-Ray, Labs, Meds, VS Vital Signs Date Time Temp Pulse Resp B/P (MAP) Pulse Ox O2 Delivery O2 Flow Rate FiO2 03/02/24 12:16 98.1 63 20 133/68 (89) 98 98.1 03/02/24 12:16 63 20 98 Room Air 03/02/24 11:30 98.1 63 20 133/68 (89) 98 PATIENT: MARIMAR STEELECCT: [id number]: [id number] : 1940 LOC: ER ROOM / BED: / AGE / SEX: 83 / M ADM STATUS: REG ER SERVICE 1209 ORDERING PHYSICIAN: RIKY STEVE PROCEDURE(s): LUMB2 - LUMBAR SPINE 3 VIEW REASON: PAIN, NO INJURY ORDER NUMBER(s): [id number], ACCESSION NUMBER(s): [id number] XY LUMBAR SPINE 3 VIEW, HISTORY: PAIN, NO INJURY COMPARISON: None TECHNICAL DATA: Frontal and lateral views were obtained of the lumbar spine . FINDINGS: There are 5 lumbar type vertebral bodies. Lumbar curvature is within normal limits. There is no spondylolisthesis. Vertebral body heights are maintained. Disk heights are normal. The facet joints appear normal. The sacroiliac joints are symmetric. Paraspinal soft tissues are within normal limits. IMPRESSION: Multilevel degenerative changes of the lumbar spine. No acute fracture or dislocation of the lumbar spine. ATED BY: BAUTISTA SOL MD DICTATED DATE/TIME: 03/02/24 1235 SIGNED BY: BAUTISTA SOL MD SIGNED DATE/TIME: 03/02/24 1235 CC: X-Ray, Labs, Meds, VS Comment EXTERNAL MEDICAL RECORDS REVIEWED: [NONE] INDEPENDENT HISTORIANS: [NONE] SOCIAL DETERMINANTS OF HEALTH: [NONE] LABS ORDERED: NONE REVIEWED AND INTERPRETED RESULTS: NONE IMAGING ORDERED: XR L-SPINE TREATMENTS ORDERED: PROCEDURES PERFORMED: NONE CRITICAL CARE TIME: NONE I HAVE DISCUSSED THE PATIENT WITH THE ATTENDING PHYSICIAN DR. GARBER AND HE AGREES WITH THE PATIENT'S PLAN OF CARE AND DISPOSITION. BASED ON HISTORY OF PRESENT ILLNESS, AND PHYSICAL EXAM, PATIENT WILL BE DISCHARGED HOME. DISCUSSED PLAN FOR DISCHARGE HOME WITH RX []. MEDICATION WARNINGS GIVEN. SHARED DECISION MAKING: PATIENT INSTRUCTED TO FOLLOW UP WITH PRIMARY CARE PROVIDER IN 1-2 DAYS FOR RE-EVALUATION OF SYMPTOMS. PATIENT VERBALIZES UNDERSTANDING TO RETURN TO ED FOR NEW OR WORSENING SYMPTOMS OR IF FOLLOW UP WITH PCP CANNOT BE OBTAINED. PATIENT FEELS COMFORTABLE GOING HOME AT THIS TIME. ALL QUESTIONS ADDRESSED AT TIME OF DISCHARGE. Images Reviewed?: Images reviewed and evaluated by me Time of 1ST Reevaluation: 12:51 Reevaluation 1ST: Improved Patient Education/Counseling: Diagnosis, Treatment, Need For Follow Up Family Education/Counseling: Diagnosis, Treatment, Need For Follow Up Medical Screening: No EMC Exist At This Time Departure 1 Departure Time of Disposition: 13:00 Impression: Primary Impression: DDD (degenerative disc disease), lumbar Qualified Codes: M51.360 - Other intervertebral disc degeneration, lumbar region with discogenic back pain only Additional Impression: Lumbar radiculopathy Disposition: HOME / SELF CARE / HOMELESS Condition: Stable Additional Instructions: FOLLOW-UP WITH PCP IN 1 TO 2 DAYS. TAKE MEDICATIONS PRESCRIBED. RETURN TO ED FOR ANY NEW OR WORSENING SYMPTOMS. e-Prescriptions Gabapentin (Gabapentin) 300 Mg Cap 1 CAP PO BID, #30 CAP Prov: RIKY STEVE 03/02/24 Acetaminophen (Tylenol 8 Hour Arthritis) 650 Mg Tab 650 MG PO TID, #30 TAB Prov: RIKY STEVE 03/02/24 Discharged With: Self Critical Care Note Critical Care Time?: No Stability Stability form required: No Heart Score Heart Score: Heart Score Response (Comments) Value History N/A 0 EKG N/A 0 Age N/A 0 Risk Factors N/A 0 Troponin N/A 0 Total 0 I personally scribed for RIKY STEVE ([email or web address]) on 03/02/24 at 12:19. Electr onically submitted by Johnathon Ellison ([email or web address]). RIKY STEVE Mar 02, 2024 12:19
--- NOTE | 2024-03-02 12:37 | DVH ---
XY LUMBAR SPINE 3 VIEW, HISTORY: PAIN, NO INJURY COMPARISON: None TECHNICAL DATA: Frontal and lateral views were obtained of the lumbar spine . FINDINGS: There are 5 lumbar type vertebral bodies. Lumbar curvature is within normal limits. There is no spond ylolisthesis. Vertebral body heights are maintained. Disk heights are normal. The facet joints appear normal. The sacroiliac joints are symmetric. Paraspinal soft tissues are within normal limits. IMPRESSION: Multilevel degenerative changes of the lumbar spine. No acute fracture or dislocation of the lumbar spine.
[2024-03-02] MEDS ORDERED: ACET-1080 PO (12:54)
[2024-03-02] MEDS ORDERED: GABA-1250 PO (12:54)
== END 2024-03-02 13:01 | disposition home or self-care (01) ==
LOC: ER 10:41
DX: M51.16 Intervertebral disc disorders with radiculopathy, lumbar region (principal); I10 Essential (primary) hypertension; E11.9 Type 2 diabetes mellitus without complications; E78.5 Hyperlipidemia, unspecified; M47.26 Other spondylosis with radiculopathy, lumbar region; Z79.84 Long term (current) use of oral hypoglycemic drugs; Z79.899 Other long term (current) drug therapy
CPT/HCPCS: 72100

== ENCOUNTER → 2024-04-03 | Outpatient (CLI) | payer OTHER ==
[~2024-04-03] MED LIST changes: +ACET-1080 PO; +GABA-1250 PO
[2024-04-03 08:08] LABS: Urine Bacteria None Seen /hpf (None Seen)
[2024-04-03 08:18] LABS: Basophils # (auto) 0 10 ^3/uL (0-0.2); Basophils % (auto) 0.6 % (0.0-2.0); Eosinophils # (auto) 0.1 10 ^3/uL (0-0.8); Eosinophils % (auto) 1.9 % (0.0-7.0); Hematocrit 41.1 % (41.0-53.0); Hemoglobin 13.7 g/dL (13.5-17.5); Lymphocytes # (auto) 2.1 10 ^3/uL (0.4-5.4); Lymphocytes % (auto) 34.1 % (10.0-50.0); Mean Corpuscular Hemoglobin 30.4 pg (28.0-32.0); Mean Corpuscular Hgb Conc. 33.3 g/dL (32.0-36.0); Mean Corpuscular Volume 91.4 fL (80.0-100.0); Monocytes # (auto) 0.7 10 ^3/uL (0-1.3); Monocytes % (auto) 11.7 % (0.0-12.0); Neutrophils # (auto) 3.1 10 ^3/uL (1.6-8.6); Neutrophils % (auto) 51.7 % (37.0-80.0); Nucleated Red Blood Cells % 0.2 %; Platelet Count (auto) 196 10^3/uL (140-450); Red Cell Distribution Width 14.6 % (11.8-14.3); White Blood Cell 6.1 10^3/uL (4.4-10.8)
[2024-04-03 08:23] LABS: Urine Blood 2+ /uL (Negative); Urine Clarity Clear (Clear); Urine Color Light-Yellow (Yellow); Urine Protein, UAD Negative (Negative); Urine Specific Gravity 1.019 (1.001-1.035); Urine Squamous Epithelial Cell FEW /hpf (<5); Urine Urobilinogen 2 mg/dL (Negative); Urine WBC 2 /HPF (0-3); Urine pH 5.5 (5.0-9.0)
[2024-04-03 09:22] LABS: Albumin 4.4 g/dL (3.2-4.8); Alkaline Phosphatase 63 U/L (46-116); Anion Gap 8 (5-15); Aspartate Aminotransferase 14 U/L (13-40); BUN/Creatinine Ratio 27.4 (10.0-20.0); Blood Urea Nitrogen 17 mg/dL (9-23); Calcium 9.8 mg/dL (8.7-10.4); Carbon Dioxide 26 mmol/L (20-31); Glucose 104 mg/dL (74-106); Potassium 4.2 mmol/L (3.5-5.1); Sodium 142 mmol/L (136-145)
[2024-04-03 09:23] LABS: Bilirubin, Total 0.6 mg/dL (0.2-1.0); Total Protein 6.6 g/dL (5.7-8.2)
[2024-04-03 09:29] LABS: Alanine Aminotransferase < 9 U/L (7-40); Chloride 108 mmol/L (98-107)
[2024-04-03 15:27] LABS: Triglycerides 75 mg/dL (< 150)
[2024-04-03 15:28] LABS: Cholesterol 115 mg/dL (< 200); LDL Cholesterol 61 mg/dL (< 100)
[2024-04-03 15:29] LABS: HDL Cholesterol 45 mg/dL (40-59)
== END | disposition home or self-care (01) ==
LOC: LAB 07:54
PROVIDERS: ATTEND Family Medicine
DX: I10 Essential (primary) hypertension (principal); E11.65 Type 2 diabetes mellitus with hyperglycemia; E11.620 Type 2 diabetes mellitus with diabetic dermatitis; I73.9 Peripheral vascular disease, unspecified; E78.5 Hyperlipidemia, unspecified
CPT/HCPCS: 36415; 80053; 80061; 81001; 82043; 83036; 84153; 84443; 85025

== ENCOUNTER 2024-07-07 18:50 | Emergency (ER) | payer OTHER ==
[~2024-07-07] VITALS: Ht 160 cm; Wt 73.0 kg
[2024-07-07 19:40] LABS: Basophils # (auto) 0 10 ^3/uL (0-0.2); Basophils % (auto) 0.5 % (0.0-2.0); Eosinophils # (auto) 0.1 10 ^3/uL (0-0.8); Eosinophils % (auto) 1.8 % (0.0-7.0); Hematocrit 41.7 % (41.0-53.0); Hemoglobin 14.1 g/dL (13.5-17.5); Lymphocytes # (auto) 2.3 10 ^3/uL (0.4-5.4); Lymphocytes % (auto) 37.4 % (10.0-50.0); Mean Corpuscular Hemoglobin 30.8 pg (28.0-32.0); Mean Corpuscular Hgb Conc. 33.8 g/dL (32.0-36.0); Mean Corpuscular Volume 91.2 fL (80.0-100.0); Monocytes # (auto) 0.6 10 ^3/uL (0-1.3); Monocytes % (auto) 9.4 % (0.0-12.0); Neutrophils # (auto) 3.2 10 ^3/uL (1.6-8.6); Neutrophils % (auto) 50.9 % (37.0-80.0); Nucleated Red Blood Cells % 0.1 %; Platelet Count (auto) 190 10^3/uL (140-450); Red Blood Cells 4.57 10^6/uL (4.5-5.90); Red Cell Distribution Width 13.7 % (11.8-14.3); White Blood Cell 6.2 10^3/uL (4.4-10.8)
[2024-07-07 19:56] LABS: Albumin 4.4 g/dL (3.2-4.8); Alkaline Phosphatase 69 U/L (46-116); Anion Gap 8 (5-15); Aspartate Aminotransferase 17 U/L (13-40); BUN/Creatinine Ratio 20.3 (10.0-20.0); Bilirubin, Total 0.3 mg/dL (0.2-1.0); Blood Urea Nitrogen 16 mg/dL (9-23); Calcium 9.8 mg/dL (8.7-10.4); Carbon Dioxide 25 mmol/L (20-31); Potassium 4.1 mmol/L (3.5-5.1); Sodium 140 mmol/L (136-145); Total Protein 6.9 g/dL (5.7-8.2)
--- NOTE | 2024-07-07 20:01 | DVH ---
CT HEAD WITHOUT CONTRAST INDICATION: Headache/dizziness COMPARISON: CT HEAD WITHOUT CONTRAST on DOS: 08/30/22 TECHNIQUE: CT of the head without intravenous contrast. RADIATION DOSE: CTDIvol: mGy, DLP: mGy*cm FINDINGS: There is no evidence of intracranial hemorrhage, large infarct, extra-axial collection, mass effect, midline shift, herniation or hydrocephalus. 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 The carola tricles, sulci and cisterns are age appropriate. Visualized paranasal sinuses and mastoid air cells a re clear. Soft tissues and osseous structures are unremarkable. IMPRESSION: No acute intracranial abnormality identified. Mild chronic microvascular ischemic changes. No appreciable change compared to the prior CT scan from August 2022.
--- NOTE | 2024-07-07 20:11 | DVH ---
EXAM: CT CERVICAL WITHOUT CONTRAST INDICATION: Neck pain EXAM DATE: 07/07/2024 07:30 PM COMPARISON: None TECHNIQUE: Multiple axial CT images of the cervical spine were obtained using bone algorithm. Axial a nd coronal reformatting was done. Bone and soft tissue windows were reviewed. Radiation Dose Information: CT Dose: CTDI volume is 20.25 mGy. Dose-length product is 553.72 mGy*cm FINDINGS: The cervical alignment is intact. No acute cervical spine fracture is identified. The vertebral body heights are intact. No suspicious osseous lesions are identified. Bony spondylosis and degenerative disc changes from C3 through C7. No significant degenerative changes are identified. There is no prevertebral soft tissue swelling. IMPRESSION: 1. No evidence of acute cervical spine fracture or traumatic malalignment. 2. Bony spondylosis and degenerative disc changes C3 through C7. All CT scans at this medical facility are performed using dose modulation techniques as appropriate t o a performed exam including the following: Automated exposure control was utilized; adjustment of th e MA and/or KV according to patient size; and use of iterative reconstruction technique. HS:Y
[2024-07-07 20:14] LABS: Alanine Aminotransferase < 9 U/L (7-40); Chloride 107 mmol/L (98-107); Glucose 230 mg/dL (74-106)
[2024-07-07] MEDS ORDERED: MECL1TAB42 PO (21:45)
--- NOTE | 2024-07-07 21:45 | ED.PDOC ---
HPI (NEURO) HPI Comments This patient is a pleasant 83-year-old male who arrives to the ED today with his for evaluation of dizziness concerns for the past three days. Patient states the dizziness has been fluctuating in intensity. Patient states it seems to be worse when he walks. Patient states he has had intermittent headaches as well as the dizziness. Patient denies any head trauma or history of intracranial concerns. Vital signs were stable on arrival. Chief Complaint: Dizziness Time Seen by MD: 18:52 Primary Care Provider: PT DOES NOT KNOW Reviewed Notes: Nurses Notes Information Source: Patient, Spouse Mode of Arrival: Ambulatory Severity: Moderate Dizziness/Weakness Severity: Unable to do activities Headache Severity: Moderate Timing: Days Duration: Intermittent Prehospital treatment: None Headache Location: Generalized, Frontal Onset: At rest Circumstances: Spontaneous Symptoms: Vertigo History of: None Modifying factors: Nothing Associated Signs and Symptoms: Headache, Neck Pain Past Medical History PAST MEDICAL HISTORY: DM, High Lipids, HTN Surgical History: Denies all surgeries Family History Family History: No family hx of HTN Social History Smoker: Non-Smoker Alcohol: Denies ETOH Use Drugs: Denies Drug Use Lives In: Home Constitutional: denies: chills, diaphoresis, fatigue, fever, malaise, sweats, weakness, others EENTM: denies: blurred vision, double vision, ear bleeding, ear discharge, ear drainage, ear pain, ear ringing, eye pain, eye redness, hearing loss, mouth pain, mouth swelling, nasal discharge, nose bleeding, nose congestion, nose pain, photophobia, tearing, throat pain, throat swelling, voice changes, others Respiratory: denies: cough, hemoptysis, orthopnea, SOB at rest, shortness of breath, SOB with excertion, stridor, wheezing, others Cardiovascular: denies: chest pain, dizzy spells, diaphoresis, Dyspnea on exertion, edema, irregular heart beat, left arm pain, lightheadedness, palpitations, PND, syncope, others Gastrointestinal: denies: abdomen distended, abdominal pain, blood streaked bowels, constipated, diarrhea, dysphagia, difficulty swallowing, hematemesis, melena, nausea, poor appetite, poor fluid intake, rectal bleeding, rectal pain, vomiting, others Genitourinary: denies: burning, dysuria, flank pain, frequency, hematuria, incontinence, penile discharge, penile sore, pain, testicle pain, testicle swelling, urgency, others Neurological: reports: dizziness, headache; denies: fainting, left sided numbness, left sided weakness, numbness, paresthesia, pre-existing deficit, right sided numbness, right sided weakness, seizure, speech problems, tingling, tremors, weakness, others Musculoskeletal: reports: neck pain; denies: back pain, gout, joint pain, joint swelling, muscle pain, muscle stiffness, others Integumetry: denies: bruises, change in color, change in hair/nails, dryness, laceration, lesions, lumps, rash, wounds, others Allergic/Immunocompromised: denies: Difficulty Healing, Frequent Infections, Hives, Itching, others Hematologic/Lymphatic: denies: anemia, blood clots, easy bleeding, easy bruising, swollen glands, others Endocrine: denies: excessive hunger, excessive sweating, excessive thirst, excessive urination, flushing, intolerance to cold, intolerance to heat, unexplained weight gain, unexplained weight loss, others Psychiatric: denies: anxiety, bipolar disorder, depression, hopeless, panic disorder, schizophrenia, sleepless, suicidal, others Physical Exam General Appearance: Moderate Distress ([id number] distress due to headache and dizziness concerns.), Normal HEENT: Head (Cranial exam was unremarkable. No signs of trauma. No skull depressions or deformities.), Normal ENT Inspection, Pharynx Normal, TMs Normal Neck: Other (Diffuse bilateral posterior tenderness to palpation throughout cervical spine. Moderate hypertonicity appreciated. With some straightening noted. No step-offs. [id number] reduced range of motion.) Respiratory: Chest Non-Tender, Lungs Clear, No Accessory Muscle Use, No Respi ratory Distress, Normal Breath Sounds Cardiovascular: No Edema, No JVD, No Murmur, No Gallop, Normal Peripheral Pulses, Regular Rate/Rhythm Breast Exam: Deferred Gastrointestinal: No Organomegaly, Non Tender, No Pulsatile Mass, Normal Bowel Sounds, Soft Genitalia: Deferred Pelvic: Deferred Rectal: Deferred Extremities: No calf tenderness, Normal capillary refill, Normal inspection, Normal range of motion, Non-tender, No pedal edema Neurologic: Alert, No Motor Deficits, Normal Affect, Normal Mood, No Sensory Deficits Cerebellar Function: NOT DONE Reflexes: NOT DONE Skin: Dry, Normal Color, Warm Lymphatic: No Adenopathy Was a procedure done? Was a procedure done?: No Differential Diagnosis (SZ) Seizure: CVA/TIA, Hypocalcemia, Hypoglycemia, Hyponatremia, Idiopathic, Mass Lesion, Other (Sepsis, electrolyte abnormality, inner ear concerns) X-Ray, Labs, Meds, VS Vital Signs Date Time Temp Pulse Resp B/P (MAP) Pulse Ox O2 Delivery O2 Flow Rate FiO2 07/07/24 19:24 98.4 67 16 112/64 (80) 97 98.4 Lab Test 07/07/24 19:23 Range/Units White Blood Count 6.2 4.4-10.8 10^3/uL Red Blood Count 4.57 4.5-5.90 10^6/uL Hemoglobin 14.1 13.5-17.5 g/dL Hematocrit 41.7 41.0-53.0 % Mean Corpuscular Volume 91.2 80.0-100.0 fL Mean Corpuscular Hemoglobin 30.8 28.0-32.0 pg Mean Corpuscular Hemoglobin Concent 33.8 32.0-36.0 g/dL Red Cell Distribution Width 13.7 11.8-14.3 % Platelet Count 190 140-450 10^3/uL Mean Platelet Volume 7.6 6.9-10.8 fL Neutrophils (%) (Auto) 50.9 37.0-80.0 % Lymphocytes (%) (Auto) 37.4 10.0-50.0 % Monocytes (%) (Auto) 9.4 0.0-12.0 % Eosinophils (%) (Auto) 1.8 0.0-7.0 % Basophils (%) (Auto) 0.5 0.0-2.0 % Neutrophils # (Auto) 3.2 1.6-8.6 10 ^3/uL Lymphocytes # (Auto) 2.3 0.4-5.4 10 ^3/uL Monocytes # (Auto) 0.6 0-1.3 10 ^3/uL Eosinophils # (Auto) 0.1 0-0.8 10 ^3/uL Basophils # (Auto) 0 0-0.2 10 ^3/uL Nucleated Red Blood Cells 0.1 % Sodium Level 140 136-145 mmol/L Potassium Level 4.1 3.5-5.1 mmol/L Chloride Level 107 98-107 mmol/L Carbon Dioxide Level 25 20-31 mmol/L Anion Gap 8 5-15 Blood Urea Nitrogen 16 9-23 mg/dL Creatinine 0.79 0.700-1.30 mg/dL Glomerular Filtration Rate Calc 88 >90 mL/min BUN/Creatinine Ratio 20.3 H 10.0-20.0 Serum Glucose 230 H 74-106 mg/dL Calcium Level 9.8 8.7-10.4 mg/dL Total Bilirubin 0.3 0.2-1.0 mg/dL Aspartate Amino Transferase (AST) 17 13-40 U/L Alanine Aminotransferase (ALT) < 9 7-40 U/L Alkaline Phosphatase 69 46-116 U/L Total Protein 6.9 5.7-8.2 g/dL Albumin 4.4 3.2-4.8 g/dL X-Ray, Labs, Meds, VS Comment All studies performed the ED were evaluated by me personally. Laboratories studies were unremarkable for any systemic concerns. CT of head was unremarkable for any acute process. Unknown as to the definitive cause of the patient's dizziness. Patient had some relief with medication. Advised patient follow up with the primary care provider in the next few days for re-evaluation. Time of 1ST Reevaluation: 21:43 Reevaluation 1ST: Improved Consultation: PCP Patient Education/Counseling: Diagnosis, Treatment Family Education/Counseling: Diagnosis, Treatment Departure 1 Departure Time of Disposition: 21:44 Impression: Primary Impression: Dizziness, nonspecific Disposition: 01 HOME / SELF CARE / HOMELESS Condition: Stable Additional Instructions: Advise utilizing medication as needed for symptomatic relief as well as good hydration and healthy nutrition for the next few weeks. Patient should follow up with the primary care provider in the next 5-7 days for re-evaluation. e-Prescriptions Meclizine HCl (Meclizine 25) 25 Mg Tab 25 MG PO Q12HP PRN, #10 TAB Prov: ANGUS MORSE PAC 07/07/24 Discharged With: Self, Spouse Critical Care Note Critical Care Time?: No Stability Stability form required: No Heart Score Heart Score: Heart Score Response (Comments) Value History N/A 0 EKG N/A 0 Age N/A 0 Risk Factors N/A 0 Troponin N/A 0 Total 0 ANGUS MORSE PAC July 07, 2024 21:45
[2024-07-07 23:45] VITALS: BP 182/70; PULSE 70; RESP 18; TEMP 97.6; O2SAT 99
[2024-07-07] MEDS: MECLIZINE HCL 25 MG TAB PO ONE (23:48)
== END 2024-07-08 00:27 | disposition home or self-care (01) ==
LOC: ER 18:50
DX: R42 Dizziness and giddiness (principal); R51.9 Headache, unspecified; E11.9 Type 2 diabetes mellitus without complications; I10 Essential (primary) hypertension; E78.5 Hyperlipidemia, unspecified
CPT/HCPCS: 36415; 70450; 72125; 80053; 85025; 99284; J8597

== ENCOUNTER 2024-07-10 18:46 | Emergency (ER) | payer MEDICARE, OTHER ==
[~2024-07-10] VITALS: Ht 162.6 cm; Wt 70.5 kg
[~2024-07-10 18:46] MED LIST changes: +MECL1TAB42 PO
[2024-07-10 19:28] VITALS: BP 161/81; PULSE 88; RESP 18; TEMP 98.5; O2SAT 93
[2024-07-10] MEDS ORDERED: CARB6.5S44 RIGHT EAR (19:38)
[2024-07-10] MEDS ORDERED: AMOX875T4 PO (19:38)
[2024-07-10] MEDS ORDERED: ACET500T58 PO (19:38)
--- NOTE | 2024-07-10 19:38 | ED.PDOC ---
Eye-HPI HPI Comments 83 year old male present to ER with complaints of left sided earache x 4 days. Patient reports he has been experiencing left sided earache pain with associated sore throat and congestion x 4 days. He rates his current left sided earache pain a 2/10. Denies use of medications for current symptoms and presents to ER ambulatory, in no distress. Denies fever, n/v, headache, ear drainage, skin changes or any further symptoms/complaints Chief Complaint: Earache Time Seen by MD: 18:58 Primary Care Provider: KATE Walker Notes: Nurses Notes, Medications, Allergies Allergies: Coded Allergies: NO KNOWN ALLERGIES (Unverified , 03/20/14) Home Meds Active Scripts Acetaminophen (Acetaminophen) 500 Mg Tab, 500 MG PO Q4HPRN, #30 TAB 0 Refills Prov:KYLE BRAVO 07/10/24 Carbamide Peroxide (Debrox) 6.5 % Daniela, 5 DROP RIGHT EAR BID for 4 Days, #1 BOTTLE 0 Refills Prov:KYLE BRAVO 07/10/24 Amoxicillin & Pot Clavulanate (Amoxicillin/Potassium Cla) 875 Mg Tab, 1 TAB PO BID for 7 Days, #14 TAB 0 Refills Prov:KYLE BRAVO 07/10/24 Meclizine HCl (Meclizine 25) 25 Mg Tab, 25 MG PO Q12HP PRN, #10 TAB Prov:ANGUS MORSE 07/07/24 Gabapentin (Gabapentin) 300 Mg Cap, 1 CAP PO BID, #30 CAP Prov:RIKY STEVE 03/02/24 Acetaminophen (Tylenol 8 Hour Arthritis) 650 Mg Tab, 650 MG PO TID, #30 TAB Prov:RIKY STEVE 03/02/24 Reported Medications Cholecalciferol (VITAMIN D3) 2,000 Unit Tab, 1 TAB PO DAILY 08/25/22 Rosuvastatin Calcium (Rosuvastatin Calcium) 5 Mg Tab, 1 TAB PO DAILY 08/25/22 Metformin Hydrochloride (Metformin Hcl) 1,000 Mg Tab, 1 TAB PO BID 08/25/22 Valsartan (Valsartan) 160 Mg Tab, 1 TAB PO QAM for HTN 08/25/22 Information Source: Patient Mode of Arrival: Ambulatory Past Medical History PAST MEDICAL HISTORY: DM, High Lipids, HTN Surgical History: Denies all surgeries Family History Family History: No family hx of HTN Social History Smoker: Non-Smoker Alcohol: Denies ETOH Use Drugs: Denies Drug Use Lives In: Home Constitutional: denies: chills, diaphoresis, fatigue, fever, malaise, sweats, weakness, others EENTM: reports: others (As stated in HPI) Respiratory: denies: cough, hemoptysis, orthopnea, SOB at rest, shortness of breath, SOB with excertion, stridor, wheezing, others Cardiovascular: denies: chest pain, dizzy spells, diaphoresis, Dyspnea on exertion, edema, irregular heart beat, left arm pain, lightheadedness, palpitations, PND, syncope, others Gastrointestinal: denies: abdomen distended, abdominal pain, blood streaked bowels, constipated, diarrhea, dysphagia, difficulty swallowing, hematemesis, melena, nausea, poor appetite, poor fluid intake, rectal bleeding, rectal pain, vomiting, others Genitourinary: denies: burning, dysuria, flank pain, frequency, hematuria, incontinence, penile discharge, penile sore, pain, testicle pain, testicle swelling, urgency, others Neurological: denies: dizziness, fainting, headache, left sided numbness, left sided weakness, numbness, paresthesia, pre-existing deficit, right sided numbness, right sided weakness, seizure, speech problems, tingling, tremors, weakness, others Musculoskeletal: denies: back pain, gout, joint pain, joint swelling, muscle pain, muscle stiffness, neck pain, others Integumetry: denies: bruises, change in color, change in hair/nails, dryness, laceration, lesions, lumps, rash, wounds, others Allergic/Immunocompromised: denies: Difficulty Healing, Frequent Infections, Hives, Itching, others Hematologic/Lymphatic: denies: anemia, blood clots, easy bleeding, easy bruising, swollen glands, others Endocrine: denies: excessive hunger, excessive sweating, excessive thirst, excessive urination, flushing, intolerance to cold, intolerance to heat, unexplained weight gain, unexplained weight loss, others Psychiatric: denies: anxiety, bipolar disorder, depression, hopeless, panic d isorder, schizophrenia, sleepless, suicidal, others Physical Exam General Appearance: No Apparent Distress HEENT: PERRL/EOMI, Pharynx Normal, Other (Mild erythema noted to left middle ear canal without skin changes/drainage. Right-sided cerumen impaction also noted with decreased whispered hearing noted on right. TM normal on left, unable to visualize TM on right due to cerumen impaction. ) Neck: Full Range of Motion, Non-Tender, Normal Respiratory: Chest Non-Tender, Lungs Clear, No Accessory Muscle Use, No Respiratory Distress, Normal Breath Sounds Cardiovascular: No Murmur, No Gallop, Regular Rate/Rhythm Breast Exam: Deferred Gastrointestinal: NOT DONE Genitalia: Deferred Pelvic: Deferred Rectal: Deferred Extremities: Normal capillary refill, Normal range of motion Neurologic: Alert, hospital administrative assistant II-XII 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 Was a procedure done?: No Sedation Sedation?: No EENT DIFF Eye: N/A Ear: Abrasion, Foreign Body, Otitis Externa, Perforation, Pharyngitis X-Ray, Labs, Meds, VS Vital Signs Date Time Temp Pulse Resp B/P (MAP) Pulse Ox O2 Delivery O2 Flow Rate FiO2 07/10/24 19:28 98.5 88 18 161/81 (107) 93 98.5 07/10/24 19:28 93 Room Air* 0 21 07/10/24 19:05 98.5 88 18 164/81 (108) 93 98.5 Advised to follow up with PCP in 1-2 days Patient and patient's daughter verbalized understanding and agreeable with current plan of care Advised to return to ER immediately if symptoms worsen Time of 1ST Reevaluation: 19:12 Reevaluation 1ST: N/A Patient Education/Counseling: Diagnosis, Treatment, Prognosis, Need For Follow Up Family Education/Counseling: Diagnosis, Treatment, Prognosis, Need For Follow Up Departure 1 Departure Time of Disposition: 19:32 Impression: Primary Impression: Otitis media of left ear Qualified Codes: H66.92 - Otitis media, unspecified, left ear Additional Impression: Impacted cerumen of right ear Disposition: HOME / SELF CARE / HOMELESS Condition: Stable e-Prescriptions Acetaminophen (Acetaminophen) 500 Mg Tab 500 MG PO Q4HPRN, #30 TAB 0 Refills Prov: KYLE BRAVO 07/10/24 Carbamide Peroxide (Debrox) 6.5 % Daniela 5 DROP RIGHT EAR BID for 4 Days, #1 BOTTLE 0 Refills Prov: KYLE BRAVO 07/10/24 Amoxicillin & Pot Clavulanate (Amoxicillin/Potassium Cla) 875 Mg Tab 1 TAB PO BID for 7 Days, #14 TAB 0 Refills Prov: KYLE BRAVO 07/10/24 Discharged With: Other (Daughter) Critical Care Note Critical Care Time?: No Stability Stability form required: No Heart Score Heart Score: Heart Score Response (Comments) Value History N/A 0 EKG N/A 0 Age N/A 0 Risk Factors N/A 0 Troponin N/A 0 Total 0 KYLE BRAVO July 10, 2024 19:38
== END 2024-07-10 19:49 | disposition home or self-care (01) ==
LOC: ER 18:46
DX: H66.92 Otitis media, unspecified, left ear (principal); H61.21 Impacted cerumen, right ear; E11.9 Type 2 diabetes mellitus without complications; I10 Essential (primary) hypertension; E78.5 Hyperlipidemia, unspecified; Z79.84 Long term (current) use of oral hypoglycemic drugs; Z79.899 Other long term (current) drug therapy

== ENCOUNTER 2024-07-26 13:05 | Outpatient (CLI) | payer OTHER ==
[~2024-07-26 13:05] MED LIST changes: +ASPI-543 PO; +ATOR20TA50 PO; +CHLO25TA2 PO; +CLOP75TA70 PO; -MECL1TAB42 PO; -ROSU5TAB24 PO; +VALS1TAB57 PO; -VALS1TAB58 PO
[2024-07-26 13:18] LABS: Urine Bacteria None Seen /hpf (None Seen)
[2024-07-26 13:28] LABS: Basophils # (auto) 0.1 10 ^3/uL (0-0.2); Basophils % (auto) 1.3 % (0.0-2.0); Eosinophils # (auto) 0.1 10 ^3/uL (0-0.8); Eosinophils % (auto) 1.3 % (0.0-7.0); Hematocrit 41.9 % (41.0-53.0); Hemoglobin 14.5 g/dL (13.5-17.5); Lymphocytes # (auto) 2.4 10 ^3/uL (0.4-5.4); Mean Corpuscular Hemoglobin 30.9 pg (28.0-32.0); Mean Corpuscular Hgb Conc. 34.5 g/dL (32.0-36.0); Mean Corpuscular Volume 89.4 fL (80.0-100.0); Monocytes # (auto) 0.9 10 ^3/uL (0-1.3); Monocytes % (auto) 11.7 % (0.0-12.0); Neutrophils % (auto) 53.7 % (37.0-80.0); Nucleated Red Blood Cells % 0.1 %; Platelet Count (auto) 198 10^3/uL (140-450); Red Blood Cells 4.69 10^6/uL (4.5-5.90); White Blood Cell 7.5 10^3/uL (4.4-10.8)
[2024-07-26 13:39] LABS: Urine Blood 1+ /uL (Negative); Urine Clarity Clear (Clear); Urine Color Yellow (Yellow); Urine Mucus FEW (None Seen); Urine Protein, UAD Negative (Negative); Urine Specific Gravity 1.022 (1.001-1.035); Urine Squamous Epithelial Cell FEW /hpf (<5); Urine Urobilinogen Normal (Negative); Urine WBC 1 /HPF (0-3)
[2024-07-26 13:47] LABS: Alanine Aminotransferase 11 U/L (7-40); Albumin 4.4 g/dL (3.2-4.8); Alkaline Phosphatase 65 U/L (46-116); Anion Gap 10 (5-15); Aspartate Aminotransferase 28 U/L (0-34); Calcium 9.3 mg/dL (8.7-10.4); Carbon Dioxide 21 mmol/L (20-31); Glucose 82 mg/dL (74-106); Potassium 4.2 mmol/L (3.5-5.1); Sodium 139 mmol/L (136-145); Total Protein 6.9 g/dL (5.7-8.2); Uric Acid 7.1 mg/dL (3.7-9.2)
[2024-07-26 13:48] LABS: Bilirubin, Total 0.6 mg/dL (0.2-1.0)
[2024-07-26 13:54] LABS: Blood Urea Nitrogen 41 mg/dL (9-23); Chloride 108 mmol/L (98-107)
[2024-07-26 15:01] LABS: Triglycerides 97 mg/dL (< 150)
[2024-07-26 15:02] LABS: LDL Cholesterol 55 mg/dL (< 100)
[2024-07-26 15:03] LABS: Cholesterol 108 mg/dL (< 200)
[2024-07-26 15:08] LABS: HDL Cholesterol 35 mg/dL (40-59)
== END 2024-07-26 17:00 | disposition home or self-care (01) ==
LOC: LAB 13:05
PROVIDERS: ATTEND Family Medicine
DX: E11.65 Type 2 diabetes mellitus with hyperglycemia (principal); G45.9 Transient cerebral ischemic attack, unspecified; E11.59 Type 2 diabetes mellitus with other circulatory complications; Z79.899 Other long term (current) drug therapy
CPT/HCPCS: 36415; 80053; 80061; 81001; 82043; 82306; 83036; 84153; 84443; 84550; 85025

== ENCOUNTER 2024-08-06 21:47 | Inpatient (IN) | payer OTHER ==
[~2024-08-06] VITALS: Ht 172.7 cm; Wt 72.4 kg
--- NOTE | 2024-08-06 22:44 | ED.PDOC ---
History of Present Illness HPI Comments 83-year-old male presents with daughter for complaint of headache, dizziness, nausea, and vomiting. Per daughter, patient reports on pain being localized behind his left ear. He is stated to have had similar symptoms, with a accompany ED visit and hospital admission, 3x weeks ago. He was found with acute ischemic stroke and and aorta aneurysm during said admission then. He denies having any abdominal pain, patient or speech changes, facial droop, weakness, numbness, tingling, or further associated symptoms. 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 He is on Plavix and aspirin, currently. Chief Complaint: Headache Time Seen by MD: 22:25 Primary Care Provider: KATE Walker Notes: Nurses Notes, Medications, Allergies Allergies: Coded Allergies: NO KNOWN ALLERGIES (Unverified , 03/20/14) Home Meds Active Scripts Valsartan (Valsartan) 80 Mg Tab, 160 MG PO DAILY for 30 Days, #60 TAB Prov:LEVON GILLESPIE 07/24/24 Clopidogrel Bisulfate (CLOPIDOGREL) 75 Mg Tab, 75 MG PO DAILY for 21 Days, #21 TAB Prov:[facility] 07/24/24 Chlorthalidone (Chlorthalidone) 25 Mg Tab, 12.5 MG PO DAILY@BREAKFAST for 30 Days, #15 TAB Prov:[facility] 07/24/24 Atorvastatin Calcium (ATORVASTATIN CALCIUM) 20 Mg Tab, 40 MG PO HS for 30 Days, #60 TAB Prov:VERNALEVON 07/24/24 Aspirin (Aspir-Low) 81 Mg Tab, 81 MG PO DAILY for 30 Days, #30 TAB Prov:[facility] 07/24/24 Gabapentin (Gabapentin) 300 Mg Cap, 1 CAP PO BID, #30 CAP Prov:RIKY STEVE 03/02/24 Acetaminophen (Tylenol 8 Hour Arthritis) 650 Mg Tab, 650 MG PO TID, #30 TAB Prov:RIKY STEVE 03/02/24 Reported Medications Cholecalciferol (VITAMIN D3) 2,000 Unit Tab, 1 TAB PO DAILY 08/25/22 Metformin Hydrochloride (Metformin Hcl) 1,000 Mg Tab, 1 TAB PO BID 08/25/22 Information Source: Patient, Relative (Child) Mode of Arrival: Wheelchair Severity: Moderate Timing: Months Duration: Intermittent Prehospital treatment: None Past Medical History PAST MEDICAL HISTORY: DM (type II), High Lipids, HTN Past Medical History (Other): Acute ischemia stroke-left parietal subcortical white matter 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 Surgical History: Denies all surgeries Family History Family History: No family hx of HTN Social History Smoker: Non-Smoker Alcohol: Denies ETOH Use Drugs: Denies Drug Use Lives In: Home All Other Systems: Reviewed and Negative (CT head without contrast, chest x- ray) Physical Exam General Appearance: No Apparent Distress, Normal, Other (Appears uncomfortable ) HEENT: Normal ENT Inspection, Pharynx Normal, TMs Normal Neck: Full Range of Motion, Non-Tender, Normal, Normal Inspection Respiratory: Chest Non-Tender, Lungs Clear, No Accessory Muscle Use, No Respiratory Distress, Normal Breath Sounds Cardiovascular: No Edema, No JVD, No Murmur, No Gallop, Normal Peripheral Pulses, Regular Rate/Rhythm Breast Exam: Deferred Gastrointestinal: No Organomegaly, Non Tender, No Pulsatile Mass, Normal Bowel Sounds, Soft Genitalia: Deferred Pelvic: Deferred Rectal: Deferred Extremities: No calf tenderness, Normal capillary refill, Normal inspection, Normal range of motion, Non-tender, No pedal edema Musculoskeletal : Apperance: Normal Neurologic: Alert, [employer] 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 Was a procedure done?: No Differential Dx Considerations may include: acute stroke, aneurysm, vertigo, electrolyte imbalance, dehydration, viral syndrome, among others X-Ray, Labs, Meds, VS Vital Signs Date Time Temp Pulse Resp B/P (MAP) Pulse Ox O2 Delivery O2 Flow Rate FiO2 08/06/24 21:59 97.5 97 16 146/88 (107) 97 97.5 Lab Test 08/06/24 22:55 Range/Units White Blood Count 12.1 H 4.4-10.8 10^3/uL Red Blood Count 4.75 4.5-5.90 10^6/uL Hemoglobin 14.5 13.5-17.5 g/dL Hematocrit 41.8 41.0-53.0 % Mean Corpuscular Volume 88.1 80.0-100.0 fL Mean Corpuscular Hemoglobin 30.5 28.0-32.0 pg Mean Corpuscular Hemoglobin Concent 34.6 32.0-36.0 g/dL Red Cell Distribution Width 13.9 11.8-14.3 % Platelet Count 214 140-450 10^3/uL Mean Platelet Volume 8.1 6.9-10.8 fL Neutrophils (%) (Auto) 87.0 H 37.0-80.0 % Lymphocytes (%) (Auto) 5.9 L 10.0-50.0 % Monocytes (%) (Auto) 6.5 0.0-12.0 % Eosinophils (%) (Auto) 0.1 0.0-7.0 % Basophils (%) (Auto) 0.5 0.0-2.0 % Neutrophils # (Auto) 10.5 H 1.6-8.6 10 ^3/uL Lymphocytes # (Auto) 0.7 0.4-5.4 10 ^3/uL Monocytes # (Auto) 0.8 0-1.3 10 ^3/uL Eosinophils # (Auto) 0 0-0.8 10 ^3/uL Basophils # (Auto) 0.1 0-0.2 10 ^3/uL Nucleated Red Blood Cells 0.1 % Sodium Level Pending Potassium Level Pending Chloride Level Pending Carbon Dioxide Level Pending Anion Gap Pending Blood Urea Nitrogen Pending Creatinine Pending Glomerular Filtration Rate Calc Pending BUN/Creatinine Ratio Pending Serum Glucose Pending Calcium Level Pending Troponin I High Sensitivity Pending Time of 1ST Reevaluation: 22:55 Reevaluation 1ST: Unchanged Patient Education/Counseling: Diagnosis, Treatment, Other (Need for admission) Family Education/Counseling: Diagnosis, Treatment, Other (Need for admission ) Additional Information Previous visits reviewed: July 10, 2024 and July 22, 2024 encounter for otitis media of the left ear and hypertensive urgency and vertigo, respectively The following tests were ordered, and results were reviewed by me: EKG, troponin, CT head without contrast, chest x-ray, CBC. BMP Additional Information was gathered from interviewing the following independent historians: Daughter I reviewed and agreed with the following test results read by other providers: CT head without contrast, chest x-ray I discussed treatment and results with medical personnel and: patient, daughter SEPSIS Sepsis Screen Date sepsis recognized/suspect: Aug 06, 2024 Time Sepsis recognized/suspect: 2155 Recent Procedure: No On Antibiotic Therapy: No Respiratory Rate >20: No Heart Rate >90: Yes Temp<36 C (96.8 F) or >38.3 C: No SBP <90 or MAP <65 mmHG: No New Acute Mental Status Change: No Is the patient on CPAP, BIPAP,: No Physician Orders Troponin-I Hs (08/06/24 22:28) Chest Portable (08/06/24 22:28) Head Without Contrast (08/06/24 22:28) Electrocardigram (08/06/24 22:28) Troponin-I Hs (08/06/24 23:28) Troponin-I Hs (08/07/24 01:28) Electrocardigram (08/06/24:) Electrocardigram (08/07/24 01:28) Sodium Chloride 0.9% (08/06/24 22:30) Basic Metabolic Panel (08/06/24 22:37) Vital Signs Date Time Temp Pulse Resp B/P (MAP) Pulse Ox O2 Delivery O2 Flow Rate FiO2 08/06/24 21:59 97.5 97 16 146/88 (107) 97 97.5 Laboratory Tests Test 08/06/24 22:55 White Blood Count 12.1 10^3/uL (4.4-10.8) H Departure 1 Departure Time of Disposition: 23:20 (Patient with worsening dizziness and migraine. Given the patient's multiple comorbidities and status migrainous we will admit patient for further workup and expert consultation) Impression: Primary Impression: Migraine Qualified Codes: G43.111 - Migraine with aura, intractable, with status migrainosus Additional Impression: Generalized weakness Disposition: ADMITTED INPATIENT Admit to: Med Surg Condition: Serious Critical Care Note Critical Care Time?: No Stability Stability form required: No Heart Score Heart Score: Heart Score Response (Comments) Value History N/A 0 EKG N/A 0 Age N/A 0 Risk Factors N/A 0 Troponin N/A 0 Total 0 I personally scribed for MASOUD SALAMANCA MD ([email or web address]) on 08/06/24 at 22:44. Electronically submitted by Bryce Hare ([email or web address]). MASOUD SALAMANCA MD Aug 06, 2024 22:44
--- NOTE | 2024-08-06 22:50 | DVH ---
CHEST RADIOGRAPH Indication: dizziness Technique: Single frontal view of the chest was obtained Comparison: XY CHEST PORTABLE on DOS: 07/22/24, XY CHEST PORTABLE on DOS: 08/30/22, XY CHEST PORTABLE on DOS: 08/27/22 FINDINGS: Lines and Tubes: None Lungs: Mild bibasilar areas of atelectasis or developing airspace disease. This appears worse 10/03 Pleura: No effusion. No pneumothorax. Cardiomediastinal contours: Unremarkable Bones: No acute osseous abnormality. IMPRESSION: 1. Worsening bibasilar atelectasis or airspace disease.
--- NOTE | 2024-08-06 22:54 | DVH ---
EXAM: CT HEAD WITHOUT CONTRAST INDICATION: dizziness TECHNIQUE: CT of the head without intravenous contrast. Radiation Dose Information: CT Dose: CTDI volume is 57.44 mGy. Dose-length product is 1035.63 mGy*cm The dose indicators for CT are the volume Computed Tomography (CT) Dose Index (CTDIvol) and the Dose Length Product (DLP), and are measured in units of mGy and mGy-cm, respectively. These indicators are not patient dose, but values generated from the CT scanner acquisition factors. The report includes radiation exposure data for exposures received during this examination. COMPARISON: CT HEAD WITHOUT CONTRAST on DOS: 07/22/24, CT HEAD WITHOUT CONTRAST on DOS: 07/07/24, CT HEA D WITHOUT CONTRAST on DOS: 08/30/22 FINDINGS: There is no evidence of acute intracranial hemorrhage, extra-axial collection, mass effect, midline s hift, herniation or hydrocephalus. Small lacunar infarct left hoffman radiata The ventricles, sulci and cisterns are age appropriate. The hamlin-white differentiation is intact. Patchy periventricular and subcortical white matter hypoattenuation is nonspecific but may be related to small vessel ischemic disease. The visualized paranasal sinuses and mastoid air cells are clear. The surrounding soft tissues and osseous structures are unremarkable. IMPRESSION: 1. No acute intracranial abnormality.
[2024-08-06 23:10] LABS: Basophils # (auto) 0.1 10 ^3/uL (0-0.2); Basophils % (auto) 0.5 % (0.0-2.0); Eosinophils # (auto) 0 10 ^3/uL (0-0.8); Eosinophils % (auto) 0.1 % (0.0-7.0); Hematocrit 41.8 % (41.0-53.0); Hemoglobin 14.5 g/dL (13.5-17.5); Lymphocytes # (auto) 0.7 10 ^3/uL (0.4-5.4); Lymphocytes % (auto) 5.9 % (10.0-50.0); Mean Corpuscular Hemoglobin 30.5 pg (28.0-32.0); Mean Corpuscular Hgb Conc. 34.6 g/dL (32.0-36.0); Mean Corpuscular Volume 88.1 fL (80.0-100.0); Monocytes # (auto) 0.8 10 ^3/uL (0-1.3); Monocytes % (auto) 6.5 % (0.0-12.0); Neutrophils # (auto) 10.5 10 ^3/uL (1.6-8.6); Nucleated Red Blood Cells % 0.1 %; Platelet Count (auto) 214 10^3/uL (140-450); Red Blood Cells 4.75 10^6/uL (4.5-5.90); Red Cell Distribution Width 13.9 % (11.8-14.3); White Blood Cell 12.1 10^3/uL (4.4-10.8)
[2024-08-06 23:24] LABS: Chloride 104 mmol/L (98-107); Sodium 139 mmol/L (136-145)
[2024-08-06 23:25] LABS: Anion Gap 14 (5-15); Calcium 9.3 mg/dL (8.7-10.4); Carbon Dioxide 21 mmol/L (20-31)
[2024-08-06 23:30] LABS: BUN/Creatinine Ratio 25.3 (10.0-20.0); Blood Urea Nitrogen 21 mg/dL (9-23)
[2024-08-06 23:33] LABS: Glucose 164 mg/dL (74-106); Potassium 3.5 mmol/L (3.5-5.1)
[2024-08-07] MEDS: METOCLOPRAMIDE HCL 5MG/ml INJ 2ml VIAL IV ONE (01:02)
[2024-08-07] MEDS: SODIUM CHLORIDE 0.9% 1,000 ML IV ONE ×3 (01:03→10:33)
[2024-08-07] MEDS ORDERED: ACETAMINOPHEN 325 MG TAB PO PRN (01:45)
[2024-08-07] MEDS ORDERED: ONDANSETRON HCL 4 MG/2 ML VIAL IV PRN (01:45)
[2024-08-07] MEDS: cefTRIAXone 1GM/50ML D5W 50 ML IV ONE (02:27)
[2024-08-07 02:50] LABS: Urine Bacteria None Seen /hpf (None Seen)
[2024-08-07 03:23] LABS: Urine Blood Negative /uL (Negative); Urine Clarity Clear (Clear); Urine Color Light-Yellow (Yellow); Urine Hyaline Cast FEW /lpf (0 - 2); Urine Protein, UAD Negative (Negative); Urine Specific Gravity 1.015 (1.001-1.035); Urine Squamous Epithelial Cell None Seen /hpf (<5); Urine Urobilinogen Normal (Negative); Urine WBC < 1 /HPF (0-3)
[2024-08-07 03:24] LABS: COVID19 ANTIGEN SOFIA FIA NEGATIVE (NEGATIVE); Rapid Influenza A Negative (Negative); Rapid Influenza B Negative (Negative)
[2024-08-07 03:25] LABS: Amphetamine Screen, Urine Neg (NEGATIVE); Barbiturate Scree,Urine Neg (NEGATIVE); Benzodiazephine Screen, Urine Neg (NEGATIVE); Cannabinoid Screen, Urine Neg (NEGATIVE); Cocaine Screen, Urine Neg (NEGATIVE); Opiate Scree,Urine Neg (NEGATIVE); Phencyclidine Screen, Urine Neg (NEGATIVE)
--- NOTE | 2024-08-07 05:09 | DVHHPRES ---
History of Present Illness Resident Creating Document: EMPERATRIZ NERI RESIDENT History of Present Illness Patient is a 83-year-old male with a past medical history of hypertension, type 2 diabetes mellitus, hyperlipidemia presented to the ED with a chief complaint of dizziness. Patient reported pain and tenderness behind the left ear and decreased hearing in the left ear along with dizziness with a sensation of spinning whenever with the patient gets up from the sitting or lying down position and tries to stand, feels wobbly, and feels that we will fall down. Patient denied fever, chills. Patient also reports of mild left ear pain, mild frontal headache, but has been concern is the dizziness he experiences. Patient does not have any weakness in the upper or lower extremities, no sensory loss. Patient was recently admitted to the hospital with a similar complaint of dizziness about 3 weeks ago and underwent extensive imaging with brain MRI showing possible tiny focus of ischemia in the left parietal subcortical white matter following which he was started on aspirin and 21 days of Plavix. Carotid Doppler showed 50-69% stenosis of the left internal carotid artery following which CTA head and neck was done which did not show any significant stenosis but incidentally aneurysmal dilation of tubular ascending aorta measuring 4.4 cm was found and the patient was informed to follow up with the primary care provider and regular imaging. Past medical history: As per HPI Past surgical history: Gallbladder stone, patient unable to determine if he had cholecystectomy Social history: Patient denies smoking, alcohol, drug use and lives with his daughter Home medications: Valsartan 80 mg, fluoxetine 20 mg, chlorthalidone 12.5 mg, aspirin, Plavix, rosuvastatin 10 Review of Systems Review of Systems Patient seen and examined at the bedside Reports of dizziness and the sensation of spinning Pain and tenderness behind the left ear No other acute complaints Allergies: Coded Allergies: NO KNOWN ALLERGIES (Unverified , 03/20/14) Medications Current Medications Medications Dose Ordered Sig/Sandro Route Start Time Stop Time Status Last Admin Dose Admin Ceftriaxone Sodium 50 ml @ 100 mls/hr DAILY@09 IV 08/08/24 09:00 Valsartan 80 mg DAILY PO 08/07/24 10:00 Aspirin 81 mg DAILY PO 08/07/24 10:00 Ondansetron HCl 4 mg Q8HPRN PRN IV 08/07/24 01:45 Acetaminophen 650 mg Q6HP PRN PO 08/07/24 01:45 Exam Vital Signs Vital Signs Date Time Temp Pulse Resp B/P (MAP) Pulse Ox O2 Delivery O2 Flow Rate FiO2 08/07/24 03:30 72 14 145/71 (95) 98 08/07/24 01:25 98.1 98.1 08/07/24 01:03 Room Air* 0 21 Exam Gen - no pallor, no icterus, no cyanosis, no clubbing, no LAD, no edema . Skin - Patients skin is warm and dry. HEENT - normocephalic, atraumatic, moist mucous membranes, otoscopic examination revealed normal-appearing tympanic membrane without any bulging, no fluid seen in the ear canal Neck - full ROM, no LAD, no JVD Pulmonary - B/L equal breath sounds, no crackles, no wheezing, no stridor. cardiovascular - regular S1,S2 heard, no added sounds, no murmurs heard. GI - soft, nontender abdomen. no hepatospleenomegaly. Bowel sounds normoactive Neurological - Patient is A/O X 3 . Bilateral upper extremity strength 5/5, bilateral lower extremity strength 5/5, no facial droop, normal speech, no tremor, no sensory deficiets. Labs/Xrays Labs Test 08/07/24 02:29 08/07/24 02:13 08/07/24 01:53 08/06/24 22:55 Range/Units Urine Color Light-yellow Yellow Urine Clarity Clear Clear Urine pH 5.0 5.0-9.0 Urine Specific [place] 1.015 1.001-1.035 Urine Protein Negative Negative Urine Ketones Negative Negative Urine Blood Negative Negative /uL Urine Nitrite Negative Negative Urine Bilirubin Negative Negative Urine Urobilinogen Normal Negative mg/dL Urine Leukocyte Esterase Negative Negative /uL Urine RBC 3 0 - 3 /hpf Urine Microscopic WBC < 1 0-3 /HPF Urine Squamous Epithelial Cells None seen <5 /hpf Urine Bacteria None seen None Seen /hpf Urine Hyaline Casts Few 0 - 2 /lpf Urine Glucose Normal Normal mg/dL Urine Opiates Screen Neg NEGATIVE Urine Fentanyl Screen Neg NEGATIVE Urine Barbiturates Screen Neg NEGATIVE Urine Phencyclidine Screen Neg NEGATIVE Urine Amphetamines Screen Neg NEGATIVE Urine Benzodiazepines Screen Neg NEGATIVE Urine Cocaine Screen Neg NEGATIVE Urine Cannabinoids Screen Neg NEGATIVE Lactic Acid Level 3.0 *H 0.4-2.0 mmol/L Influenza Type A Antigen Negative Negative Influenza Type B Antigen Negative Negative SARS-CoV-2 Antigen (Rapid) Negative NEGATIVE Troponin I High Sensitivity 14 </=54 ng/L White Blood Count 12.1 H 4.4-10.8 10^3/uL Red Blood Count 4.75 4.5-5.90 10^6/uL Hemoglobin 14.5 13.5-17.5 g/dL Hematocrit 41.8 41.0-53.0 % Mean Corpuscular Volume 88.1 80.0-100.0 fL Mean Corpuscular Hemoglobin 30.5 28.0-32.0 pg Mean Corpuscular Hemoglobin Concent 34.6 32.0-36.0 g/dL Red Cell Distribution Width 13.9 11.8-14.3 % Platelet Count 214 140-450 10^3/uL Mean Platelet Volume 8.1 6.9-10.8 fL Neutrophils (%) (Auto) 87.0 H 37.0-80.0 % Lymphocytes (%) (Auto) 5.9 L 10.0-50.0 % Monocytes (%) (Auto) 6.5 0.0-12.0 % Eosinophils (%) (Auto) 0.1 0.0-7.0 % Basophils (%) (Auto) 0.5 0.0-2.0 % Neutrophils # (Auto) 10.5 H 1.6-8.6 10 ^3/uL Lymphocytes # (Auto) 0.7 0.4-5.4 10 ^3/uL Monocytes # (Auto) 0.8 0-1.3 10 ^3/uL Eosinophils # (Auto) 0 0-0.8 10 ^3/uL Basophils # (Auto) 0.1 0-0.2 10 ^3/uL Nucleated Red Blood Cells 0.1 % Sodium Level 139 136-145 mmol/L Potassium Level 3.5 3.5-5.1 mmol/L Chloride Level 104 98-107 mmol/L Carbon Dioxide Level 21 20-31 mmol/L Anion Gap 14 5-15 Blood Urea Nitrogen 21 9-23 mg/dL Creatinine 0.83 0.700-1.30 mg/dL Glomerular Filtration Rate Calc 87 >90 mL/min BUN/Creatinine Ratio 25.3 H 10.0-20.0 Serum Glucose 164 H 74-106 mg/dL Calcium Level 9.3 8.7-10.4 mg/dL Assessment/Plan Assessment/Plan Sepsis likely due to mastoiditis versus pneumonia Dizziness, likely vertigo due to underlying urine infection Rule out acute stroke Possible acute mastoiditis with underlying chronic otitis media - head CT shows no acute intracranial abnormality - IV ceftriaxone - IV fluids - MRI from July 23 showed tiny focus of ischemia in the left parietal subcortical white matter with [id number] changes of chronic microvascular ischemia - aspirin 81 mg daily Possible pneumonia due to gram+/- bacteria - chest x-ray shows right basilar possible airspace disease - IV ceftriaxone - p.o. azithromycin - IV fluids Hypertensive heart disease Moderate left ventricular hypertrophy Ascending aortic aneurysm measuring 4.4 cm - continued on valsartan 80 mg, ( at home patient is a chlorthalidone but currently held because of sepsis) - strict blood pressure control - interval imaging irregularly on follow up with the PCP - atorvastatin PUD prophylaxis: Protonix DVT prophylaxis: Enoxaparin Goals of care discussed with the patient and his daughter for over 21 minutes. Full code Time spent: 39 minutes Plan discussed with Dr. Becerra Plan discussed with: Patient, Daughter My Orders Orders - EMPERATRIZ NERI RESIDENT Procedure Category Date Status Time Admit ADMIT 08/07/24 Transmitted 01:42 Oxygen By Nasal RT 08/07/24 Transmitted Cannula 01:42 Stat Ekg For Chest RAGINI 08/07/24 In Process Pain 01:42 Notify Of Changes RAGINI 08/07/24 In Process From Base 01:42 Mrsa Screen KARSTEN 08/07/24 Logged 01:42 Sodium Chloride 0.9% PHA 08/07/24 In Process 01:45 Valsartan (Diovan) PHA 08/07/24 In Process 10:00 Aspirin Tablet PHA 08/07/24 In Process 10:00 Clopidogrel Bisulfate PHA 08/07/24 In Process (Plavix) 10:00 Complete Blood Count LAB 08/07/24 Logged 06:00 Comprehensive LAB 08/07/24 Logged Metabolic Panel 06:00 Ondansetron Hcl PHA 08/07/24 In Process (Zofran) 01:45 Acetaminophen Tablet PHA 08/07/24 In Process (Tylenol Tablet) 01:45 Ceftriaxone 1gm/50ml PHA 08/08/24 In Process D5w (Rocephin) 09:00 Date of Service: Aug 07, 2024 Billing Provider: ANN BECERRA MD Common Visit Codes: 14020-UNVRMBR INP/OBS CARE (HIGH) Secondary Visit Codes: [id number] CARE PLAN 30 MINUTES EMPERATRIZ NERI RESIDENT Aug 07, 2024 05:09
[2024-08-07 05:10] VITALS: BP 125/77; PULSE 71; RESP 18; TEMP 97.8; O2SAT 97
[2024-08-07] MEDS: PANTOPRAZOLE 40 MG TAB PO SCH (06:20)
[2024-08-07] MEDS ORDERED: HYDROmorphone HCL 2 MG/ML VL/or syr IV PRN (07:00)
[2024-08-07 07:13] LABS: Basophils # (auto) 0 10 ^3/uL (0-0.2); Basophils % (auto) 0.5 % (0.0-2.0); Eosinophils # (auto) 0 10 ^3/uL (0-0.8); Eosinophils % (auto) 0.4 % (0.0-7.0); Hematocrit 40.6 % (41.0-53.0); Hemoglobin 14.1 g/dL (13.5-17.5); Lymphocytes # (auto) 1.7 10 ^3/uL (0.4-5.4); Lymphocytes % (auto) 22.4 % (10.0-50.0); Mean Corpuscular Hemoglobin 30.7 pg (28.0-32.0); Mean Corpuscular Hgb Conc. 34.7 g/dL (32.0-36.0); Mean Corpuscular Volume 88.4 fL (80.0-100.0); Monocytes # (auto) 0.7 10 ^3/uL (0-1.3); Monocytes % (auto) 8.8 % (0.0-12.0); Neutrophils # (auto) 5.2 10 ^3/uL (1.6-8.6); Neutrophils % (auto) 67.9 % (37.0-80.0); Nucleated Red Blood Cells % 0.1 %; Platelet Count (auto) 191 10^3/uL (140-450); Red Blood Cells 4.59 10^6/uL (4.5-5.90); Red Cell Distribution Width 13.8 % (11.8-14.3); White Blood Cell 7.7 10^3/uL (4.4-10.8)
[2024-08-07 07:27] LABS: Albumin 4.3 g/dL (3.2-4.8); Alkaline Phosphatase 61 U/L (46-116); Anion Gap 10 (5-15); Aspartate Aminotransferase 16 U/L (<34); BUN/Creatinine Ratio 21.3 (10.0-20.0); Bilirubin, Total 0.6 mg/dL (0.2-1.0); Blood Urea Nitrogen 16 mg/dL (9-23); Calcium 9.8 mg/dL (8.7-10.4); Carbon Dioxide 27 mmol/L (20-31); Chloride 108 mmol/L (98-107); Glucose 106 mg/dL (74-106); Potassium 3.5 mmol/L (3.5-5.1); Sodium 145 mmol/L (136-145); Total Protein 6.7 g/dL (5.7-8.2)
[2024-08-07 07:28] LABS: Alanine Aminotransferase < 9 U/L (7-40)
[2024-08-07 08:00] VITALS: PULSE 61; RESP 16; O2SAT 98
[2024-08-07] MEDS ORDERED: CHLORTHALIDONE 25 MG TAB PO SCH (08:00)
[2024-08-07 09:00] VITALS: BP 128/89; PULSE 61; RESP 16; TEMP 98.1; O2SAT 98
[2024-08-07] MEDS: ASPirin 81 mg TAB PO SCH (10:18)
[2024-08-07] MEDS: CLOPIDOGREL BISULFATE 75 MG TAB PO ONE (10:19)
[2024-08-07] MEDS: VALSARTAN 80 MG TAB PO SCH (10:19)
[2024-08-07] MEDS: ENOXAPARIN SOD 40 MG/0.4 ML SYRINGE SC SCH (10:20)
[2024-08-07] MEDS: AZITHROMYCIN 250 MG TAB PO SCH (10:22)
[2024-08-07 13:00] VITALS: BP 142/67; PULSE 63; RESP 18; TEMP 97.8; O2SAT 94
--- NOTE | 2024-08-07 14:58 | DVHPNRES ---
Progress Note Date Seen: Aug 07, 2024 Resident Creating Document: ERIC COURTNEY TANVI Has the PT tested + for MRSA If YES, has PT been informed?: No Medical Necessity Reason Pt with a Central, PICC or Fol: No Subjective Review of Systems Patient is a 83-year-old male with a past medical history of hypertension, type 2 diabetes mellitus, hyperlipidemia presented to the ED with a chief complaint of dizziness. Patient reported pain and tenderness behind the left ear and decreased hearing in the left ear along with dizziness with a sensation of spinning whenever with the patient gets up from the sitting or lying down position and tries to stand, feels wobbly, and feels that we will fall down. Patient denied fever, chills. Patient also reports of mild left ear pain, mild frontal headache, but has been concern is the dizziness he experiences. Patient does not have any weakness in the upper or lower extremities, no sensory loss. Patient was recently admitted to the hospital with a similar complaint of dizziness about 3 weeks ago and underwent extensive imaging with brain MRI showing possible tiny focus of ischemia in the left parietal subcortical white matter following which he was started on aspirin and 21 days of Plavix. Carotid Doppler showed 50-69% stenosis of the left internal carotid artery following which CTA head and neck was done which did not show any significant stenosis but incidentally aneurysmal dilation of tubular ascending aorta measuring 4.4 cm was found and the patient was informed to follow up with the primary care provider and regular imaging. Past medical history: As per HPI Past surgical history: Gallbladder stone, patient unable to determine if he had cholecystectomy Social history: Patient denies smoking, alcohol, drug use and lives with his daughter Home medications: Valsartan 80 mg, fluoxetine 20 mg, chlorthalidone 12.5 mg, aspirin, Plavix, rosuvastatin 10 Patient seen and examined at the bedside. Patient is still complained of dizziness, cough, mild shortness of breath and generalized weakness Patient reports: No new complaints, Feels better Objective vital signs Vital Sign Date Time Temp Pulse Resp B/P (MAP) Pulse Ox O2 Delivery O2 Flow Rate FiO2 08/07/24 13:00 97.8 63 18 142/67 (92) 94 97.8 08/07/24 08:00 Room Air* 0 21 Total Intake and Output 08/06/24 08/06/24 08/07/24 15:00 23:00 07:00 Intake Total 1250 ml Balance 1250 ml medications Current Medications Medications Dose Ordered Sig/Sandro Route Start Time Stop Time Status Last Admin Dose Admin Ceftriaxone Sodium 50 ml @ 100 mls/hr DAILY@09 IV 08/08/24 09:00 Valsartan 80 mg DAILY PO 08/07/24 10:00 08/07/24 10:19 80 MG Aspirin 81 mg DAILY PO 08/07/24 10:00 08/07/24 10:18 81 MG Ondansetron HCl 4 mg Q8HPRN PRN IV 08/07/24 01:45 Acetaminophen 650 mg Q6HP PRN PO 08/07/24 01:45 Pantoprazole Sodium 40 mg DAILY@0600 PO 08/07/24 06:00 08/07/24 06:20 40 MG Enoxaparin Sodium 40 mg DAILY SC 08/07/24 10:00 08/07/24 10:20 40 MG Azithromycin 500 mg DAILY PO 08/07/24 10:00 08/07/24 10:22 500 MG Examination General Appearance: Alert, Oriented X3, Cooperative, No acute distress HEENT: Atraumatic, PERRLA, EOMI, Mucous membrane moist/pink Respiratory: Right-sided mild crackles Cardiovascular: Regular rate, Normal S1, Normal S2, No murmurs, no chest wall tenderness Abdominal: Normal bowel sounds, Soft, No tenderness, No hepatospenomegaly, No masses Extremities: No clubbing, No cyanosis, No edema, Normal pulses, No tenderness/swelling Skin: No rashes, No breakdown, No significant lesion Neuro: Normal gait, Normal speech, Strength at 5/5 X4 ext, Normal tone, Sensation intact, Cranial nerves 3-12 NL, Reflexes 2+ Psych/Mental Status: Mental status NL, Mood NL laboratory and microbiology Laboratory Tests 08/07/24 05:58 Test 08/07/24 05:58 Range/Units Serum Glucose 106 74-106 mg/dL Labs and/or images reviewed: Labs reviewed by me, Image(s) reviewed by me Problem List/Assessment/Plan Problem List/Assessment/Plan Sepsis, likely due to pneumonia/mastoiditis Pneumonia, likely due to Gram-positive/Gram-negative bacteria/viral ? Acute mastoiditis Dizziness likely due to mastoiditis ? Benign paroxysmal positional vertigo Ruled out CVA Hypertensive heart disease Moderate left ventricular hypertrophy Ascending aortic aneurysm measuring 4.4 cm * Chest x-ray shows bilateral nonhomogeneous opacities * His CT scan shows no acute intracranial abnormalities Plan/recommendation * Empiric antibiotic Rocephin, azithromycin * IV fluid * Check COVID-19/influenza * Continue home meds * Meclizine 10 mg daily DIET: Cardiac diet DVT PROPHYLAXIS: Lovenox CODE STATUS: Goal of care discussed for more than 18 minutes, full code DISPOSITION: Med/surge Patient's status and plan discussed with the patient. Case discussed with Dr. Gray. Plan discussed with: Patient, Other (RN) My Orders My Orders Orders - ERIC COURTNEY RESDIENT Procedure Category Date Status Time Consistent DIET 08/07/24 Transmitted Carb(Ccho)Diabetes Breakfast ERIC COURTNEY RESDIENT Aug 07, 2024 14:58
[2024-08-07] MEDS: SODIUM CHLORIDE 0.9% 250 ML IV ONE (15:15)
[2024-08-07] MEDS ORDERED: MECLIZINE HCL 25 MG TAB PO PRN (15:30)
[2024-08-07 16:30] VITALS: BP 152/68; PULSE 59; RESP 18; TEMP 97.9; O2SAT 97
[2024-08-07] MEDS: MECLIZINE HCL 25 MG TAB PO ONE (18:07)
[2024-08-07 21:00] VITALS: BP 141/75; PULSE 64; RESP 17; TEMP 98.2; O2SAT 97
[2024-08-08 01:00] VITALS: BP_SYST 125; BP_SYST 141; BP_DIAS 47; BP_DIAS 52; PULSE 58; PULSE 60; RESP 16; TEMP 97.7; TEMP 98.2; O2SAT 95; O2SAT 97
[2024-08-08 05:00] VITALS: BP 125/53; PULSE 52; RESP 16; TEMP 97.7; O2SAT 96
[2024-08-08 07:47] LABS: Basophils # (auto) 0 10 ^3/uL (0-0.2); Basophils % (auto) 0.6 % (0.0-2.0); Eosinophils # (auto) 0.1 10 ^3/uL (0-0.8); Eosinophils % (auto) 2.3 % (0.0-7.0); Hemoglobin 13.3 g/dL (13.5-17.5); Lymphocytes # (auto) 1.8 10 ^3/uL (0.4-5.4); Lymphocytes % (auto) 30.8 % (10.0-50.0); Mean Corpuscular Hemoglobin 30.2 pg (28.0-32.0); Mean Corpuscular Hgb Conc. 34.1 g/dL (32.0-36.0); Mean Corpuscular Volume 88.6 fL (80.0-100.0); Monocytes # (auto) 0.7 10 ^3/uL (0-1.3); Monocytes % (auto) 12.3 % (0.0-12.0); Neutrophils # (auto) 3.2 10 ^3/uL (1.6-8.6); Nucleated Red Blood Cells % 0.2 %; Platelet Count (auto) 181 10^3/uL (140-450); Red Cell Distribution Width 13.6 % (11.8-14.3); White Blood Cell 5.9 10^3/uL (4.4-10.8)
[2024-08-08 08:00] VITALS: PULSE 52; RESP 20; O2SAT 98
[2024-08-08 08:18] LABS: Calcium 9.6 mg/dL (8.7-10.4)
[2024-08-08 08:20] LABS: Chloride 108 mmol/L (98-107)
[2024-08-08 08:22] LABS: BUN/Creatinine Ratio 19.5 (10.0-20.0); Blood Urea Nitrogen 15 mg/dL (9-23); Glucose 99 mg/dL (74-106)
[2024-08-08 08:52] LABS: Anion Gap 9 (5-15); Carbon Dioxide 26 mmol/L (20-31); Potassium 3.9 mmol/L (3.5-5.1); Sodium 143 mmol/L (136-145)
[2024-08-08 09:00] VITALS: BP 145/60; PULSE 52; RESP 20; TEMP 98.3; O2SAT 98
[2024-08-08] MEDS: cefTRIAXone 1GM/50ML D5W 50 ML IV SCH (09:00)
[2024-08-08] MEDS ORDERED: AZIT500T66 PO (11:24)
[2024-08-08 13:00] VITALS: BP 150/70; PULSE 59; RESP 18; TEMP 98.6; O2SAT 96
--- NOTE | 2024-08-08 14:15 | DVHDSRES ---
Discharge Summary Date of Admission Resident Creating Document: ERIC COURTNEY RESDIENT Aug 07, 2024 at 01:42 Date of Discharge: Aug 08, 2024 Labs/Diagnostic Data: Laboratory Results Test 08/08/24 07:00 08/07/24 05:58 08/07/24 02:29 08/07/24 02:13 White Blood Count 5.9 10^3/uL (4.4-10.8) Red Blood Count 4.40 10^6/uL (4.5-5.90) Hemoglobin 13.3 g/dL (13.5-17.5) Hematocrit 39.0 % (41.0-53.0) Mean Corpuscular Volume 88.6 fL (80.0-100.0) Mean Corpuscular Hemoglobin 30.2 pg (28.0-32.0) Mean Corpuscular Hemoglobin Concent 34.1 g/dL (32.0-36.0) Red Cell Distribution Width 13.6 % (11.8-14.3) Platelet Count 181 10^3/uL (140-450) Mean Platelet Volume 7.7 fL (6.9-10.8) Neutrophils (%) (Auto) 54.0 % (37.0-80.0) Lymphocytes (%) (Auto) 30.8 % (10.0-50.0) Monocytes (%) (Auto) 12.3 % (0.0-12.0) Eosinophils (%) (Auto) 2.3 % (0.0-7.0) Basophils (%) (Auto) 0.6 % (0.0-2.0) Neutrophils # (Auto) 3.2 10 ^3/uL (1.6-8.6) Lymphocytes # (Auto) 1.8 10 ^3/uL (0.4-5.4) Monocytes # (Auto) 0.7 10 ^3/uL (0-1.3) Eosinophils # (Auto) 0.1 10 ^3/uL (0-0.8) Basophils # (Auto) 0 10 ^3/uL (0-0.2) Nucleated Red Blood Cells 0.2 % Sodium Level 143 mmol/L (136-145) Potassium Level 3.9 mmol/L (3.5-5.1) Chloride Level 108 mmol/L (98-107) Carbon Dioxide Level 26 mmol/L (20-31) Anion Gap 9 (5-15) Blood Urea Nitrogen 15 mg/dL (9-23) Creatinine 0.77 mg/dL (0.700-1.30) Glomerular Filtration Rate Calc 89 mL/min (>90) BUN/Creatinine Ratio 19.5 (10.0-20.0) Serum Glucose 99 mg/dL (74-106) Calcium Level 9.6 mg/dL (8.7-10.4) Lactic Acid Level 1.5 mmol/L (0.4-2.0) Total Bilirubin 0.6 mg/dL (0.2-1.0) Aspartate Amino Transferase (AST) 16 U/L (<34) Alanine Aminotransferase (ALT) < 9 U/L (7-40) Alkaline Phosphatase 61 U/L (46-116) Total Protein 6.7 g/dL (5.7-8.2) Albumin 4.3 g/dL (3.2-4.8) Urine Color Light-yellow (Yellow) Urine Clarity Clear (Clear) Urine pH 5.0 (5.0-9.0) Urine Specific [place] 1.015 (1.001-1.035) Urine Protein Negative (Negative) Urine Ketones Negative (Negative) Urine Blood Negative /uL (Negative) Urine Nitrite Negative (Negative) Urine Bilirubin Negative (Negative) Urine Urobilinogen Normal mg/dL (Negative) Urine Leukocyte Esterase Negative /uL (Negative) Urine RBC 3 /hpf (0 - 3) Urine Microscopic WBC < 1 /HPF (0-3) Urine Squamous Epithelial Cells None seen /hpf (<5) Urine Bacteria None seen /hpf (None Seen) Urine Hyaline Casts Few /lpf (0 - 2) Urine Glucose Normal mg/dL (Normal) Urine Opiates Screen Neg (NEGATIVE) Urine Fentanyl Screen Neg (NEGATIVE) Urine Barbiturates Screen Neg (NEGATIVE) Urine Phencyclidine Screen Neg (NEGATIVE) Urine Amphetamines Screen Neg (NEGATIVE) Urine Benzodiazepines Screen Neg (NEGATIVE) Urine Cocaine Screen Neg (NEGATIVE) Urine Cannabinoids Screen Neg (NEGATIVE) Influenza Type A Antigen Negative (Negative) Influenza Type B Antigen Negative (Negative) SARS-CoV-2 Antigen (Rapid) Negative (NEGATIVE) Test 08/07/24 01:53 Troponin I High Sensitivity 14 ng/L (</=54) Other Laboratory Tests 08/08/24 07:00 Brief Hx & Hospital Course: HISTORY OF PRESENT ILLNESS: Patient is a 83-year-old male with a past medical history of hypertension, type 2 diabetes mellitus, hyperlipidemia presented to the ED with a chief complaint of dizziness. Patient reported pain and tenderness behind the left ear and decreased hearing in the left ear along with dizziness with a sensation of spinning whenever with the patient gets up from the sitting or lying down position and tries to stand, feels wobbly, and feels that we will fall down. He also reports of cough, mild shortness of bed and fever. Patient also reports of mild left ear pain, mild frontal headache, but has been concern is the dizziness he experiences. Patient does not have any weakness in the upper or lower extremities, no sensory loss. Patient was recently admitted to the hospital with a similar complaint of dizziness about 3 weeks ago and underwent extensive imaging with brain MRI showing possible tiny focus of ischemia in the left parietal subcortical white matter following which he was started on aspirin and 21 days of Plavix. Carotid Doppler showed 50-69% stenosis of the left internal carotid artery following which CTA head and neck was done which did not show any significant stenosis but incidentally aneurysmal dilation of tubular ascending aorta measuring 4.4 cm was found and the patient was informed to follow up with the primary care provider and regular imaging. Past surgical history: Gallbladder stone, patient unable to determine if he had cholecystectomy Social history: Patient denies smoking, alcohol, drug use and lives with his daughter Home medications: Valsartan 80 mg, fluoxetine 20 mg, chlorthalidone 12.5 mg, aspirin, Plavix, rosuvastatin 10 HOSPITAL COURSE: Patient was admitted at the line of sepsis, likely due to pneumonia/mastoiditis. Patient was started on empiric antibiotic of Rocephin, azithromycin, IV fluid and pain management. CT scan of the head performed showed no significant intracranial abnormalities, chest x-ray shows bilateral nonhomogeneous opacities likely due to infectious etiology. Due to vertigo, Teresa maneuver was performed, which showed no vertigo, dizziness or nystagmus. For persistent vertigo the patient was given meclizine p.r.n. during hospital course. COVID-19 and influenza were checked, results were negative. During hospital course home medication were continued. On 08/08/2024, the patient was feeling better since admission. The patient cough, shortness of breaths, vertigo and generalized weakness had improved. Discharge plan discussed with the patient and the patient discharged home. DISCHARGE PLAN: Follow up with the PCP within 1 week of the discharge. Azithromycin 500 mg daily for 5 days. Continue home meds FINAL DIAGNOSIS: Pneumonia, likely due to Gram-positive Gram-negative bacteria/viral Sepsis, likely due to above ? Mastoiditis Dizziness likely due to mastoiditis ? Benign paroxysmal positional vertigo Ruled out CVA Hypertensive heart disease Moderate left ventricular hypertrophy Ascending aortic aneurysm measuring 4.4 cm Ruled out migraine Condition at Discharge: Good Final Diagnosis/Problems List . Discharge Disposition: Home Discharge Instruct/Medications Diet: Regular Activity: No Restrictions, As Tolerated Follow Up/Referral: Follow up with the PCP within 1 week of the discharge. Medications: Tablet azithromycin 500 mg for 5 days Discharge Statement: "Patient was advised to return to the ER or call 911 if any headaches, dizziness, shortness of breath, chest pain, abdominal pain, bleeding, fevers, or worsening of medical condition. Patient was counseled about treatment plan, medications, possible side effects, patientverbalized understanding. All questions were answered to the best of my ability. This discharge took greater then 30 minutes in planning, reviewing documentation, counseling the patient, and discussing with other team members." ASSESSMENT ASSESSMENT Assessment Pneumonia ERIC COURTNEY [facility] Aug 08, 2024 14:15
== END 2024-08-08 14:33 | disposition home or self-care (01) | DRG 871 ==
LOC: ER 21:47 → OVERFLOW 08-07 01:42 → WEST WING 08-07 03:38
PROVIDERS: ADMIT Student in an Organized Health Care Education/Training Program; ATTEND Student in an Organized Health Care Education/Training Program
DX: A41.50 Gram-negative sepsis, unspecified (principal); J12.9 Viral pneumonia, unspecified; J15.69 Pneumonia due to other Gram-negative bacteria; J15.9 Unspecified bacterial pneumonia; I71.9 Aortic aneurysm of unspecified site, without rupture; Z20.822 Contact with and (suspected) exposure to COVID-19; E11.9 Type 2 diabetes mellitus without complications; I11.9 Hypertensive heart disease without heart failure; H70.90 Unspecified mastoiditis, unspecified ear; E78.5 Hyperlipidemia, unspecified; I10 Essential (primary) hypertension; Z79.02 Long term (current) use of antithrombotics/antiplatelets; Z79.82 Long term (current) use of aspirin; Z86.73 Personal history of transient ischemic attack (TIA), and cerebral infarction without residual deficits
CPT/HCPCS: 36415; 70450; 71045; 80048; 80053; 80307; 81001; 83605; 84484; 85025; 87081; 87426; 87804; G0378

== ENCOUNTER 2024-09-21 12:36 | Outpatient (CLI) | payer OTHER ==
[~2024-09-21 12:36] MED LIST changes: +AZIT500T66 PO
[2024-09-21 13:38] LABS: Microalb/Creat Ratio, Urine 8.0
[2024-09-21 13:43] LABS: Chloride 104 mmol/L (98-107); Potassium 3.8 mmol/L (3.5-5.1); Sodium 140 mmol/L (136-145)
[2024-09-21 13:44] LABS: Anion Gap 9 (5-15); Calcium 9.3 mg/dL (8.7-10.4); Carbon Dioxide 27 mmol/L (20-31)
[2024-09-21 13:49] LABS: BUN/Creatinine Ratio 23.8 (10.0-20.0); Blood Urea Nitrogen 19 mg/dL (9-23); Glucose 101 mg/dL (74-106)
== END 2024-09-21 17:00 | disposition home or self-care (01) ==
LOC: LAB 12:36
PROVIDERS: ATTEND Family Medicine
DX: E11.9 Type 2 diabetes mellitus without complications (principal)
CPT/HCPCS: 36415; 80048; 82043; 82570

== ENCOUNTER 2024-10-13 08:53 | Emergency (ER) | payer OTHER ==
[~2024-10-13] VITALS: Ht 170.2 cm; Wt 71.1 kg
[2024-10-13 08:56] VITALS: BP 173/74; TEMP 98.4
--- NOTE | 2024-10-13 10:08 | DVH ---
EXAM: CT HEAD WITHOUT CONTRAST INDICATION: headache TECHNIQUE: CT of the head without intravenous contrast. Radiation Dose : 1. Head: CT Dose: CTDI volume is 59 mGy. Dose-length product is 955 mGy*cm The dose indicators for CT are the volume Computed Tomography (CT) Dose Index (CTDIvol) and the Dose Length Product (DLP), and are measured in units of mGy and mGy-cm, respectively. These indicators are not patient dose, but values generated from the CT scanner acquisition factors. The report includes radiation exposure data for exposures received during this examination. COMPARISON: CT HEAD WITHOUT CONTRAST on DOS: 08/06/24, CT ANGIO HEAD/NECK on DOS: 07/24/24, MRI BRAIN H EAD WO CONTRAST on DOS: 07/23/24, CT HEAD WITHOUT CONTRAST on DOS: 07/22/24, CT HEAD WITHOUT CONTRAST on DOS: 07/07/24 FINDINGS: There is no evidence of acute intracranial hemorrhage, extra-axial collection, mass effect, midline s hift, herniation or hydrocephalus. The ventricles, sulci and cisterns are age appropriate. The hamlin-white differentiation is intact. Patchy periventricular and subcortical white matter hypoattenuation is nonspecific but may be related to small vessel ischemic disease. The visualized paranasal sinuses and mastoid air cells are clear. The surrounding soft tissues and osseous structures are unremarkable. Dolichoectasia of the vertebral basilar system, stable. Stable 2 mm punctate calcification left parietal lobe. 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 No acute intracranial abnormality. Radiation optimization: All CT scans at this facility use at least one of these dose optimization mikel hniques: automated exposure control mA and/or kV adjustment per patient size (includes targeted exam s where dose is matched to clinical indication) or iterative reconstruction.
--- NOTE | 2024-10-13 10:10 | ED.PDOC ---
HPI (NEURO) HPI Comments 84 y.o male with PMHx of HTN, HTN, and HLD, accompanied by his daughter, presents to the ED with a chief complaint of occipital head and ear pain and equilibrium imbalance that started 3 days ago. Per daughter, this is the patient's third ED visit for similar symptoms since July. The patient was admitted on 07/23/24, with diagnoses of acute ischemic stroke, thoracic ascending aorta aneurysm (noted on CT imaging) and hypertensive crisis. On 08/07/24, he was seen for a similar complaint of headache, dizziness, nausea, and vomiting, noting pain behind his left ear. He denies vision changes, nausea, or vomiting. Daughter mentions patient did see a specialist at this facility who explained the CT imaging done on 07/23/24 and has a f/u apt with PCP in 3-4 days from now. No new head injury. Chief Complaint: Headache Time Seen by MD: 09:18 Primary Care Provider: KATE Walker Notes: Nurses Notes, Medications, Allergies Information Source: Patient, Relative (daughter ) Mode of Arrival: Ambulatory Severity: Moderate Headache Severity: Moderate Timing: Days (3) Duration: Since onset Headache Quality: Sharp Headache Location: Occipital Onset: At rest Symptoms: Imbalance History of: DM, Hypertension Modifying factors: Nothing Associated Signs and Symptoms: Headache Past Medical History PAST MEDICAL HISTORY: DM, High Lipids, HTN Surgical History: Denies all surgeries Family History Family History: No family hx of HTN Social History Smoker: Non-Smoker Alcohol: Denies ETOH Use Drugs: Denies Drug Use Lives In: Home Constitutional: denies: chills, diaphoresis, fatigue, fever, malaise, sweats, weakness, others EENTM: reports: ear pain; denies: blurred vision, double vision, ear bleeding, ear discharge, ear drainage, ear ringing, eye pain, eye redness, hearing loss, mouth pain, mouth swelling, nasal discharge, nose bleeding, nose congestion, nose pain, photophobia, tearing, throat pain, throat swelling, voice changes, others Respiratory: denies: cough, hemoptysis, orthopnea, SOB at rest, shortness of breath, SOB with excertion, stridor, wheezing, others Cardiovascular: denies: chest pain, dizzy spells, diaphoresis, Dyspnea on exertion, edema, irregular heart beat, left arm pain, lightheadedness, palpitations, PND, syncope, others Gastrointestinal: denies: abdomen distended, abdominal pain, blood streaked bowels, constipated, diarrhea, dysphagia, difficulty swallowing, hematemesis, melena, nausea, poor appetite, poor fluid intake, rectal bleeding, rectal pain, vomiting, others Genitourinary: denies: burning, dysuria, flank pain, frequency, hematuria, incontinence, penile discharge, penile sore, pain, testicle pain, testicle swelling, urgency, others Neurological: reports: dizziness, headache; denies: fainting, left sided numbness, left sided weakness, numbness, paresthesia, pre-existing deficit, right sided numbness, right sided weakness, seizure, speech problems, tingling, tremors, weakness, others Musculoskeletal: denies: back pain, gout, joint pain, joint swelling, muscle pain, muscle stiffness, neck pain, others Integumetry: denies: bruises, change in color, change in hair/nails, dryness, laceration, lesions, lumps, rash, wounds, others Allergic/Immunocompromised: denies: Difficulty Healing, Frequent Infections, Hives, Itching, others Hematologic/Lymphatic: denies: anemia, blood clots, easy bleeding, easy bruising, swollen glands, others Endocrine: denies: excessive hunger, excessive sweating, excessive thirst, excessive urination, flushing, intolerance to cold, intolerance to heat, unexplained weight gain, unexplained weight loss, others Psychiatric: denies: anxiety, bipolar disorder, depression, hopeless, panic disorder, schizophrenia, sleepless, suicidal, others All Other Systems: Reviewed and Negative Physical Exam General Appearance: Moderate Distress HEENT: Normal ENT Inspection, Pharynx Normal, TMs Normal Neck: Full Range of Motion, Non-Tender, Normal, Normal Inspection Respiratory: Chest Non-Tender, Lungs Clear, No Accessory Muscle Use, No Respiratory Distress, Normal Breath Sounds Cardiovascular: No Edema, No JVD, No Murmur, No Gallop, Normal Peripheral Pulses, Regular Rate/Rhythm Breast Exam: Deferred Gastrointestinal: No Organomegaly, Non Tender, No Pulsatile Mass, Normal Bowel Sounds, Soft Genitalia: Deferred Pelvic: Deferred Rectal: Deferred Extremities: No calf tenderness, Normal capillary refill, Normal inspection, Normal range of motion, Non-tender, No pedal edema Musculoskeletal : Apperance: Normal Neurologic: Alert, 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 Was a procedure done?: No Differential Diagnosis (SZ) Seizure: Psychogenic Seizure, Closed Head Injury, CVA/TIA Headache: Cluster, Migraine, CVA, Intracerebral Hemorrhage, Subarachnoid Hemorrhage, Mass Lesion, Sinusitis, Trigeminal Neuralgia X-Ray, Labs, Meds, VS Vital Signs Date Time Temp Pulse Resp B/P (MAP) Pulse Ox O2 Delivery O2 Flow Rate FiO2 10/13/24 08:56 98.4 64 18 173/74 98 98.4 Patient alert. Complaining of headache. Vitals stable. Blood pressure slightly elevated. Was given clonidine. CT of the head reviewed does not show any acute changes. He is ambulating. No sign of distress. No neurological deficit. Explained to the patient. Was told to follow up with his primary care physician. Was told to come back if there is any problem. Time of 1ST Reevaluation: 10:30 Reevaluation 1ST: Unchanged Patient Education/Counseling: Diagnosis, Treatment, Prognosis Family Education/Counseling: Diagnosis, Treatment, Prognosis Departure 1 Departure Time of Disposition: 10:30 Impression: Primary Impression: Autonomic disorder Disposition: 01 HOME / SELF CARE / HOMELESS Condition: Good e-Prescriptions Meclizine HCl (Meclizine 25) 25 Mg Tab 25 MG PO DAILY for 10 Days, #10 TAB Prov: MITRA RUSS MD 10/13/24 Discharged With: Self Critical Care Note Critical Care Time?: No Stability Stability form required: No Heart Score Heart Score: Heart Score Response (Comments) Value History N/A 0 EKG N/A 0 Age N/A 0 Risk Factors N/A 0 Troponin N/A 0 Total 0 I personally scribed for MITRA RUSS MD ([email or web address]) on 10/13/24 at 10:10. Electronically submitted by Kathi Jung ([facility]). MITRA RUSS MD Oct 13, 2024 10:10
[2024-10-13 10:30] VITALS: PULSE 74; RESP 14; O2SAT 95
[2024-10-13] MEDS ORDERED: MECL1TAB42 PO (10:31)
[2024-10-13] MEDS: HYDROcodone-ACET 5/325MG TAB PO ONE (10:55)
== END 2024-10-13 11:08 | disposition home or self-care (01) ==
LOC: ER 08:53
DX: G90.9 Disorder of the autonomic nervous system, unspecified (principal); I10 Essential (primary) hypertension; E11.9 Type 2 diabetes mellitus without complications; E78.5 Hyperlipidemia, unspecified
CPT/HCPCS: 70450

== ENCOUNTER 2024-10-16 12:50 | Emergency (ER) | payer OTHER ==
[~2024-10-16] VITALS: Ht 170.2 cm; Wt 71.1 kg
[~2024-10-16 12:50] MED LIST changes: +MECL1TAB42 PO
--- NOTE | 2024-10-16 13:50 | ED.PDOC ---
History of Present Illness HPI Comments This is an 84-year-old male with past medical history of diabetes, hypertension dyslipidemia came to the hospital due to neck pain since 4 days. Pain is localized at the back of the neck more on the right side, nonradiating, aching, 10/10, which worsening with changing position and moving the right arm. He r eports of same pain 5 years back and upon using a local injection pain had improved. Since 4 days he has the pain, today went to urgent Care, which referred to the hospital. He denies fever, headache, blurry vision, chest pain, shortness of breath, or any motor/sensory deficits, and normal bowel and bladder habits. Chief Complaint: Abnormal LAB's Time Seen by MD: 12:59 Primary Care Provider: KATE Reviewed Notes: Nurses Notes Allergies: Coded Allergies: NO KNOWN ALLERGIES (Unverified , 03/20/14) Home Meds Active Scripts Meclizine HCl (Meclizine 25) 25 Mg Tab, 25 MG PO DAILY for 10 Days, #10 TAB Prov:MITRA RUSS MD 10/13/24 Azithromycin (Azithromycin) 500 Mg Tab, 500 MG PO DAILY for 5 Days, #5 TAB Prov:EIRC COURTNEY 08/08/24 Valsartan (Valsartan) 80 Mg Tab, 160 MG PO DAILY for 30 Days, #60 TAB Prov:LEVON GILLESPIE 07/24/24 Clopidogrel Bisulfate (CLOPIDOGREL) 75 Mg Tab, 75 MG PO DAILY for 21 Days, #21 TAB Prov:LEVON GILLESPIE 07/24/24 Chlorthalidone (Chlorthalidone) 25 Mg Tab, 12.5 MG PO DAILY@BREAKFAST for 30 Days, #15 TAB Prov:LEVON GILLESPIE 07/24/24 Atorvastatin Calcium (ATORVASTATIN CALCIUM) 20 Mg Tab, 40 MG PO HS for 30 Days, #60 TAB Prov:LEVON GILLESPIE 07/24/24 Aspirin (Aspir-Low) 81 Mg Tab, 81 MG PO DAILY for 30 Days, #30 TAB Prov:LEVON GILLESPIE 07/24/24 Gabapentin (Gabapentin) 300 Mg Cap, 1 CAP PO BID, #30 CAP Prov:RIKY STEVE 03/02/24 Acetaminophen (Tylenol 8 Hour Arthritis) 650 Mg Tab, 650 MG PO TID, #30 TAB Prov:RIKY STEVE 03/02/24 Reported Medications Cholecalciferol (VITAMIN D3) 2,000 Unit Tab, 1 TAB PO DAILY 08/25/22 Metformin Hydrochloride (Metformin Hcl) 1,000 Mg Tab, 1 TAB PO BID 08/25/22 Information Source: Patient Mode of Arrival: Ambulatory Severity: Moderate Timing: Days Duration: Days Past Medical History PAST MEDICAL HISTORY: DM, High Lipids, HTN Surgical History: Denies all surgeries Family History Family History: No family hx of HTN Social History Smoker: Non-Smoker Alcohol: Denies ETOH Use Drugs: Denies Drug Use Lives In: Home Constitutional: denies: chills, diaphoresis, fatigue, fever, malaise, sweats, weakness, others EENTM: denies: blurred vision, double vision, ear bleeding, ear discharge, ear drainage, ear pain, ear ringing, eye pain, eye redness, hearing loss, mouth pain, mouth swelling, nasal discharge, nose bleeding, nose congestion, nose pain, photophobia, tearing, throat pain, throat swelling, voice changes, others Respiratory: denies: cough, hemoptysis, orthopnea, SOB at rest, shortness of breath, SOB with excertion, stridor, wheezing, others Cardiovascular: denies: chest pain, dizzy spells, diaphoresis, Dyspnea on exertion, edema, irregular heart beat, left arm pain, lightheadedness, palpitations, PND, syncope, others Gastrointestinal: denies: abdomen distended, abdominal pain, blood streaked bowels, constipated, diarrhea, dysphagia, difficulty swallowing, hematemesis, melena, nausea, poor appetite, poor fluid intake, rectal bleeding, rectal pain, vomiting, others Genitourinary: denies: burning, dysuria, flank pain, frequency, hematuria, incontinence, penile discharge, penile sore, pain, testicle pain, testicle swelling, urgency, others Neurological: denies: dizziness, fainting, headache, left sided numbness, left sided weakness, numbness, paresthesia, pre-existing deficit, right sided numbness, right sided weakness, seizure, speech problems, tingling, tremors, weakness, others Musculoskeletal: reports: neck pain; denies: back pain, gout, joint pain, joint swelling, muscle pain, muscle stiffness, others Integumetry: denies: bruises, change in color, change in hair/nails, dryness, laceration, lesions, lumps, rash, wounds, others Allergic/Immunocompromised: denies: Difficulty Healing, Frequent Infections, Hives, Itching, others Hematologic/Lymphatic: denies: anemia, blood clots, easy bleeding, easy bruising, swollen glands, others Endocrine: denies: excessive hunger, excessive sweating, excessive thirst, excessive urination, flushing, intolerance to cold, intolerance to heat, unexp lained weight gain, unexplained weight loss, others Psychiatric: denies: anxiety, bipolar disorder, depression, hopeless, panic disorder, schizophrenia, sleepless, suicidal, others Physical Exam General Appearance: No Apparent Distress, Normal HEENT: Normal ENT Inspection, Pharynx Normal, TMs Normal Neck: Full Range of Motion, Non-Tender, Normal, Normal Inspection Respiratory: Chest Non-Tender, Lungs Clear, No Accessory Muscle Use, No Respiratory Distress, Normal Breath Sounds Cardiovascular: No Edema, No JVD, No Murmur, No Gallop, Normal Peripheral Pulses, Regular Rate/Rhythm Breast Exam: Deferred Gastrointestinal: No Organomegaly, Non Tender, No Pulsatile Mass, Normal Bowel Sounds, Soft Genitalia: Deferred Pelvic: Deferred Rectal: Deferred Extremities: No calf tenderness, Normal capillary refill, Normal inspection, Normal range of motion, Non-tender, No pedal edema Neurologic: Alert, 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 Was a procedure done?: No EKG EKG : Comments EKGs shows sinus rhythm, right bundle-branch block, left axis deviation with no significant ST or T-wave changes. Differential Dx Considerations may include: Cervical spondylosis Spinal stenosis Muscle sprain X-Ray, Labs, Meds, VS Vital Signs Date Time Temp Pulse Resp B/P (MAP) Pulse Ox O2 Delivery O2 Flow Rate FiO2 10/16/24 14:19 98.3 81 19 133/66 (88) 97 98.3 10/16/24 12:59 98.1 69 16 125/77 97 98.1 10/16/24 12:51 68 Lab Test 10/16/24 13:46 Range/Units White Blood Count 8.4 4.4-10.8 10^3/uL Red Blood Count 5.25 4.5-5.90 10^6/uL Hemoglobin 16.2 13.5-17.5 g/dL Hematocrit 46.7 41.0-53.0 % Mean Corpuscular Volume 88.9 80.0-100.0 fL Mean Corpuscular Hemoglobin 31.0 28.0-32.0 pg Mean Corpuscular Hemoglobin Concent 34.8 32.0-36.0 g/dL Red Cell Distribution Width 14.4 H 11.8-14.3 % Platelet Count 242 140-450 10^3/uL Mean Platelet Volume 7.6 6.9-10.8 fL Neutrophils (%) (Auto) 68.4 37.0-80.0 % Lymphocytes (%) (Auto) 17.3 10.0-50.0 % Monocytes (%) (Auto) 13.6 H 0.0-12.0 % Eosinophils (%) (Auto) 0.2 0.0-7.0 % Basophils (%) (Auto) 0.5 0.0-2.0 % Neutrophils # (Auto) 5.8 1.6-8.6 10 ^3/uL Lymphocytes # (Auto) 1.5 0.4-5.4 10 ^3/uL Monocytes # (Auto) 1.1 0-1.3 10 ^3/uL Eosinophils # (Auto) 0 0-0.8 10 ^3/uL Basophils # (Auto) 0 0-0.2 10 ^3/uL Nucleated Red Blood Cells 0.1 % Sodium Level 140 136-145 mmol/L Potassium Level 3.3 L 3.5-5.1 mmol/L Chloride Level 102 98-107 mmol/L Carbon Dioxide Level 27 20-31 mmol/L Anion Gap 11 5-15 Blood Urea Nitrogen 14 9-23 mg/dL Creatinine 0.80 0.700-1.30 mg/dL Glomerular Filtration Rate Calc 87 >90 mL/min BUN/Creatinine Ratio 17.5 10.0-20.0 Serum Glucose 137 H 74-106 mg/dL Calcium Level 9.4 8.7-10.4 mg/dL Total Bilirubin 1.1 H 0.2-1.0 mg/dL Aspartate Amino Transferase (AST) 22 13-40 U/L Alanine Aminotransferase (ALT) < 9 7-40 U/L Alkaline Phosphatase 100 46-116 U/L Total Protein 8.3 H 5.7-8.2 g/dL Albumin 4.8 3.2-4.8 g/dL Current Medications Medications (Trade) Dose Ordered Sig/Sandro Route Start Time Stop Time Status Last Admin Ketorolac Tromethamine (Toradol Injection) 30 mg ONCE ONCE IV 10/16/24 13:15 10/16/24 13:48 DC 10/16/24 14:16 Potassium Chloride (Klor-Con Tablet) 20 meq ONCE ONCE PO 10/16/24 15:45 10/16/24 15:46 DC 10/16/24 16:52 Time of 1ST Reevaluation: 16:00 Reevaluation 1ST: Improved Time of 2ND Reevaluation: 17:00 Reevaluation 2ND: Improved Patient Education/Counseling: Diagnosis, Treatment, Prognosis, Need For Follow Up Family Education/Counseling: Diagnosis, Treatment, Prognosis, Need For Follow Up Comments Patient came to the hospital due to neck pain. Patient was vitally stable. On physical examination there was no neurological deficits, patient had full control on bowel and bladder habits. CBC was within normal limits. CMP showed potassium 3.3, 20 mEq oral potassium given to the patient. Neck x-ray performed, showed degenerative disease with moderate to severe neural foraminal and cervical spine stenosis. The patient was given IV ketorolac 30 mg Patient is was also given hot pad for the neck Pain improved, then the patient discharged home Follow up with the PCP SEPSIS Sepsis Screen Date sepsis recognized/suspect: Oct 16, 2024 Time Sepsis recognized/suspect: 1301 Recent Procedure: No On Antibiotic Therapy: No Respiratory Rate >20: No Heart Rate >90: No Temp<36 C (96.8 F) or >38.3 C: No SBP <90 or MAP <65 mmHG: No New Acute Mental Status Change: No Is the patient on CPAP, BIPAP,: No Physician Orders Electrocardigram (10/16/24 12:56) Cervical Spine 3v (10/16/24 13:15) Communication Order (10/16/24 13:40) Vital Signs Date Time Temp Pulse Resp B/P (MAP) Pulse Ox O2 Delivery O2 Flow Rate FiO2 10/16/24 14:19 98.3 81 19 133/66 (88) 97 98.3 10/16/24 12:59 98.1 69 16 125/77 97 98.1 10/16/24 12:51 68 Laboratory Tests Test 10/16/24 13:46 White Blood Count 8.4 10^3/uL (4.4-10.8) Medications Medications Dose Ordered Sig/Sandro Route Start Time Stop Time Status Last Admin Dose Admin Ketorolac Tromethamine 30 mg ONCE ONCE IV 10/16/24 13:15 10/16/24 13:48 DC 10/16/24 14:16 Potassium Chloride 20 meq ONCE ONCE PO 10/16/24 15:45 10/16/24 15:46 DC 10/16/24 16:52 Departure 1 Departure Time of Disposition: 17:06 Impression: Primary Impression: DDD (degenerative disc disease), lumbar Additional Impression: Cervical stenosis of spine Disposition: 01 HOME / SELF CARE / HOMELESS Condition: Good Critical Care Note Critical Care Time?: No Stability Stability form required: No Heart Score Heart Score: Heart Score Response (Comments) Value History N/A 0 EKG Repolarization Disturb 1 Age >65 2 Risk Factors >3 or Hx ASHD 2 Troponin N/A 0 Total 5 ERIC COURTNEY RESDIENT Oct 16, 2024 13:50
[2024-10-16 14:14] LABS: Alkaline Phosphatase 100 U/L (46-116); Anion Gap 11 (5-15); BUN/Creatinine Ratio 17.5 (10.0-20.0); Blood Urea Nitrogen 14 mg/dL (9-23); Calcium 9.4 mg/dL (8.7-10.4); Carbon Dioxide 27 mmol/L (20-31); Chloride 102 mmol/L (98-107); Hematocrit 46.7 % (41.0-53.0); Hemoglobin 16.2 g/dL (13.5-17.5); Mean Corpuscular Hemoglobin 31.0 pg (28.0-32.0); Mean Corpuscular Volume 88.9 fL (80.0-100.0); Nucleated Red Blood Cells % 0.1 %; Sodium 140 mmol/L (136-145)
[2024-10-16 14:15] LABS: Alanine Aminotransferase < 9 U/L (7-40); Albumin 4.8 g/dL (3.2-4.8); Bilirubin, Total 1.1 mg/dL (0.2-1.0); Glucose 137 mg/dL (74-106); Potassium 3.3 mmol/L (3.5-5.1); Total Protein 8.3 g/dL (5.7-8.2)
[2024-10-16] MEDS: KETOROLAC TROMETH 30 MG/ML 1ML VIAL IV ONE (14:16)
[2024-10-16 14:19] VITALS: BP 133/66; PULSE 81; RESP 19; TEMP 98.3; O2SAT 97
--- NOTE | 2024-10-16 14:33 | DVH ---
INDICATION: Cervical arthritis COMPARISON: CT ANGIO HEAD/NECK on DOS: 07/24/24, CT CERVICAL WITHOUT CONTRAST on DOS: 07/07/24 TECHNIQUE: 4 views of the cervical spine were obtained. FINDINGS: The cervical vertebral alignment is normal. The predental space is normal. Multilevel degenerative changes most severe at C3-C4 through C6-C7 causing moderate to severe neural foraminal and spinal canal stenosis No acute fracture, vertebral compression deformity or aggressive osseous lesions. The imaged lung apices are unremarkable. IMPRESSION: No acute fracture.
[2024-10-16] MEDS: POTASSIUM CHL 20 Meq TABLET PO ONE (16:52)
--- NOTE | 2024-10-17 14:06 | ECG ---
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
== END 2024-10-16 17:02 | disposition home or self-care (01) ==
LOC: ER 12:50
DX: M51.369 Other intervertebral disc degeneration, lumbar region without mention of lumbar back pain or lower extremity pain (principal); M48.02 Spinal stenosis, cervical region; I10 Essential (primary) hypertension; E11.9 Type 2 diabetes mellitus without complications; E78.5 Hyperlipidemia, unspecified; Z79.82 Long term (current) use of aspirin; Z79.84 Long term (current) use of oral hypoglycemic drugs; Z79.899 Other long term (current) drug therapy
CPT/HCPCS: 36415; 72040; 80053; 85025; 93005; 96374; 99285; J1885

== ENCOUNTER 2025-01-06 13:15 | Emergency (ER) | payer OTHER ==
[~2025-01-06] VITALS: Ht 175.3 cm; Wt 69.3 kg
--- NOTE | 2025-01-06 15:50 | DVH ---
CLINICAL INDICATION: injury TECHNIQUE: 3 radiographic views of the left ankle were obtained. Comparison: None FINDINGS/IMPRESSION: Calcifications in the distal Achilles tendon and the plantar fascia consistent with calcified plantar fasciitis. Calcifications in the soft tissues adjacent to the medial talus. Can not exclude small avulsion fracture. Correlate clinical tenderness that may suggest acute injury.
--- NOTE | 2025-01-06 16:04 | ED.PDOC ---
Musculoskeletal HPI Comments 84 y/o M, with PMHx of DM, HTN, and HLD presents to the ED for CC of lower extremity pain. Patient states, he has been experiencing left foot pain sudden onset, x2days ago. Patient has notable swelling to the left medial malleolus of the foot. Patient reports, pain to worsen with ambulation. Patient denies any trauma, injury, or fall. No other symptoms or modifying factors are present at this time. Chief Complaint: Lower Extremity Time Seen by MD: 15:45 Primary Care Provider: KATE Reviewed Notes: Nurses Notes (se with the house it want me to review), Medications, Allergies Allergies: Coded Allergies: NO KNOWN ALLERGIES (Unverified , 03/20/14) Home Meds Active Scripts Meclizine HCl (Meclizine 25) 25 Mg Tab, 25 MG PO DAILY for 10 Days, #10 TAB Prov:MITRA RUSS MD 10/13/24 Azithromycin (Azithromycin) 500 Mg Tab, 500 MG PO DAILY for 5 Days, #5 TAB Prov:ERIC COURTNEY 08/08/24 Valsartan (Valsartan) 80 Mg Tab, 160 MG PO DAILY for 30 Days, #60 TAB Prov:LEVON GILLESPIE 07/24/24 Clopidogrel Bisulfate (CLOPIDOGREL) 75 Mg Tab, 75 MG PO DAILY for 21 Days, #21 TAB Prov:LEVON GILLESPIE 07/24/24 Chlorthalidone (Chlorthalidone) 25 Mg Tab, 12.5 MG PO DAILY@BREAKFAST for 30 Days, #15 TAB Prov:LEVON GILLESPIE 07/24/24 Atorvastatin Calcium (ATORVASTATIN CALCIUM) 20 Mg Tab, 40 MG PO HS for 30 Days, #60 TAB Prov:LEVON GILLESPIE 07/24/24 Aspirin (Aspir-Low) 81 Mg Tab, 81 MG PO DAILY for 30 Days, #30 TAB Prov:LEVON GILLESPIE 07/24/24 Gabapentin (Gabapentin) 300 Mg Cap, 1 CAP PO BID, #30 CAP Prov:RIKY STEVE 03/02/24 Acetaminophen (Tylenol 8 Hour Arthritis) 650 Mg Tab, 650 MG PO TID, #30 TAB Prov:RIKY STEVE 03/02/24 Reported Medications Cholecalciferol (VITAMIN D3) 2,000 Unit Tab, 1 TAB PO DAILY 08/25/22 Metformin Hydrochloride (Metformin Hcl) 1,000 Mg Tab, 1 TAB PO BID 08/25/22 Information Source: Patient Mode of Arrival: Ambulatory Location: Left Extremity Location: Foot Timing: Days Prehospital treatment: None Severity: Moderate Able to Move Extremity: Yes Bear Weight: Limited Pain: Moderate Mechanism: Spontaneous Circumstances: Spontaneous Onset of Symptoms: Spontaneous Symptoms: Pain DVT Risk Factors: NONE Last Tetanus: Unknown Associated signs and symptoms: Foot pain Past Medical History PAST MEDICAL HISTORY: DM, High Lipids, HTN Surgical History: Denies all surgeries Family History Family History: No family hx of HTN Social History Smoker: Non-Smoker Alcohol: Denies ETOH Use Drugs: Denies Drug Use Lives In: Home Constitutional: denies: chills, diaphoresis, fatigue, fever, malaise, sweats, weakness, others EENTM: denies: blurred vision, double vision, ear bleeding, ear discharge, ear drainage, ear pain, ear ringing, eye pain, eye redness, hearing loss, mouth pain, mouth swelling, nasal discharge, nose bleeding, nose congestion, nose pain, photophobia, tearing, throat pain, throat swelling, voice changes, others Respiratory: denies: cough, hemoptysis, orthopnea, SOB at rest, shortness of breath, SOB with excertion, stridor, wheezing, others Cardiovascular: denies: chest pain, dizzy spells, diaphoresis, Dyspnea on exertion, edema, irregular heart beat, left arm pain, lightheadedness, palpitations, PND, syncope, others Gastrointestinal: denies: abdomen distended, abdominal pain, blood streaked bowels, constipated, diarrhea, dysphagia, difficulty swallowing, hematemesis, melena, nausea, poor appetite, poor fluid intake, rectal bleeding, rectal pain, vomiting, others Genitourinary: denies: burning, dysuria, flank pain, frequency, hematuria, incontinence, penile discharge, penile sore, pain, testicle pain, testicle swelling, urgency, others Neurological: denies: dizziness, fainting, headache, left sided numbness, left sided weakness, numbness, paresthesia, pre-existing deficit, right sided numbness, right sided weakness, seizure, speech problems, tingling, tremors, weakness, others Musculoskeletal: reports: others (left foot pain); denies: back pain, gout, joint pain, joint swelling, muscle pain, muscle stiffness, neck pain Integumetry: denies: bruises, change in color, change in hair/nails, dryness, laceration, lesions, lumps, rash, wounds, others Allergic/Immunocompromised: denies: Difficulty Healing, Frequent Infections, Hives, Itching, others Hematologic/Lymphatic: denies: anemia, blood clots, easy bleeding, easy bruising, swollen glands, others Endocrine: denies: excessive hunger, excessive sweating, excessive thirst, excessive urination, flushing, intolerance to cold, intolerance to heat, u nexplained weight gain, unexplained weight loss, others Psychiatric: denies: anxiety, bipolar disorder, depression, hopeless, panic disorder, schizophrenia, sleepless, suicidal, others All Other Systems: Reviewed and Negative Physical Exam General Appearance: No Apparent Distress, Normal HEENT: Normal ENT Inspection, Pharynx Normal Neck: Full Range of Motion, Non-Tender, Normal, Normal Inspection Respiratory: Chest Non-Tender, Lungs Clear, No Accessory Muscle Use, No Respiratory Distress, Normal Breath Sounds Cardiovascular: No Edema, No Murmur, No Gallop, Normal Peripheral Pulses, Regular Rate/Rhythm Breast Exam: Deferred Gastrointestinal: No Organomegaly, Non Tender, No Pulsatile Mass, Normal Bowel Sounds, Soft Genitalia: Deferred Pelvic: Deferred Rectal: Deferred Extremities: No calf tenderness, Normal capillary refill, Normal inspection, Normal range of motion, Non-tender, No pedal edema Musculoskeletal : Location: Left Extremity Location: Foot Apperance: Tenderness (medial maleolus) Neurologic: Alert, wirer helper II-XII 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 Was a procedure done?: Yes Sedation Sedation?: No Other Procedure Procedure Stirrup splint Indication Possible medial alveolar avulsion fracture on the left side Informed consent obtained: Yes Risks, benefits, and alternati: Yes Notes Tolerated well no complications good neurovascular function Differential Diagnosis EXT Differential Diagnosis: Fracture, Sprain, Gout X-Ray, Labs, Meds, VS Vital Signs Date Time Temp Pulse Resp B/P (MAP) Pulse Ox O2 Delivery O2 Flow Rate FiO2 01/06/25 14:54 61 18 98 Room Air 01/06/25 14:54 98.4 61 18 140/54 (82) 98 98.4 01/06/25 13:16 98.2 60 18 144/[address] [address] Ph: [phone] DIAGNOSTIC IMAGING Diagnostic Imaging Report : [id number] Signed PATIENT: FABI STEELE ACCT: [id number] UNIT: [id number] : 1940 LOC: ER ROOM / BED: / AGE / SEX: 84 / M ADM STATUS: REG ER SERVICE 1501 ORDERING PHYSICIAN: PETEY MARCELO MD PROCEDURE(s): LANKL - L ANKLE 3 VIEW REASON: injury ORDER NUMBER(s): [id number], ACCESSION NUMBER(s): [id number] CLINICAL INDICATION: injury TECHNIQUE: 3 radiographic views of the left ankle were obtained. Comparison: None FINDINGS/IMPRESSION: Calcifications in the distal Achilles tendon and the plantar fascia consistent with calcified plantar fasciitis. Calcifications in the soft tissues adjacent to the medial talus. Can not exclude small avulsion fracture. Correlate clinical tenderness that may suggest acute injury. ATED BY: WESTON MERCADO Jr., DO DICTATED DATE/TIME: 01/06/251546 SIGNED BY: WESTON MERCADO Jr., SIGNED DATE/TIME: 01/06/251546 CC: Time of 1ST Reevaluation: 16:15 Reevaluation 1ST: Unchanged Patient Education/Counseling: Diagnosis, Treatment Family Education/Counseling: No Family Present Departure 1 Departure Time of Disposition: 16:23 Impression: Primary Impression: Avulsion fracture of ankle Disposition: 01 HOME / SELF CARE / HOMELESS Condition: Good e-Prescriptions Ibuprofen Micronized (MOTRIN TABLET) 600 Mg Tb 600 MG PO TID PRN, #40 TAB *Black box warning-NSAIDS can increase risk of PA & hypertension, GI irritation, ulceration, bleed, perferation. Do not use post cardiac surgery. Use short duration/lowest effective dose. Prov: PETEY MARCELO MD 01/06/25 Discharged With: Self Critical Care Note Critical Care Time?: No Stability Stability form required: No Heart Score Heart Score: Heart Score Response (Comments) Value History N/A 0 EKG N/A 0 Age N/A 0 Risk Factors N/A 0 Troponin N/A 0 Total 0 I personally scribed for PETEY MARCELO MD ([email or web address]) on 01/06/25 at 16:04. Electronically submitted by Shruti Camarena ([email or web address]). I personally scribed for PETEY MARCELO MD ([email or web address]) on 01/06/25 at 16:06. Electronically submitted by Shruti Camarena ([email or web address]). PETEY MARCELO MD Jan 06, 2025 16:04
[2025-01-06] MEDS ORDERED: IBU600T PO (16:24)
[2025-01-06 17:28] VITALS: BP 159/68; PULSE 66; RESP 16; TEMP 98.7; O2SAT 100
== END 2025-01-06 17:33 | disposition home or self-care (01) ==
LOC: ER 13:15
DX: S82.892A Other fracture of left lower leg, initial encounter for closed fracture (principal); I10 Essential (primary) hypertension; E78.5 Hyperlipidemia, unspecified; E11.9 Type 2 diabetes mellitus without complications; M79.672 Pain in left foot; X58.XXXA Exposure to other specified factors, initial encounter; Y93.89 Activity, other specified; Y92.89 Other specified places as the place of occurrence of the external cause; Y99.8 Other external cause status
CPT/HCPCS: 29515; 73610